=== PATIENT | female | born 1970 | race African-American/Black ===

== ENCOUNTER 2017-06-07 18:39 | Emergency (ER) | payer MEDICAID, MEDICARE, OTHER ==
[~2017-06-07 18:39] MED LIST: CARB200T4 PO; HYDR25CA94 PO; RISP2TAB35 PO; VENL100T PO
== END 2017-06-07 18:50 | disposition home or self-care (01) ==
LOC: ED 18:44
DX: Z02.9 Encounter for administrative examinations, unspecified (principal)

== ENCOUNTER 2017-06-07 18:52 | Emergency (ER) | payer MEDICAID, MEDICARE, OTHER ==
[~2017-06-07] VITALS: Ht 177.8 cm; Wt 81.5 kg
[2017-06-07 19:19] LABS: BASOPHILS # (AUTO) 0.03 x10^3/uL (0-0.1); BASOPHILS % (AUTO) 0 % (0-1); EOSINOPHILS # (AUTO) 0.05 x10^3/uL (0-0.4); EOSINOPHILS % (AUTO) 1 % (1-7); LYMPHOCYTES # (AUTO) 2.53 x10^3/uL (1-3.4); LYMPHOCYTES % (AUTO) 27 % (22-44); MD NO; MEAN CORPUSCULAR HEMOGLOBIN 32.2 pg (27.0-34.8); MEAN CORPUSCULAR HGB CONC 32.7 g/dL (32.4-35.8); MEAN CORPUSCULAR VOLUME 98.3 fL (80-100); MEAN PLATELET VOLUME 6.9 fL (7.4-10.4); MONOCYTES # (AUTO) 0.56 x10^3/uL (0.2-0.8); MONOCYTES % (AUTO) 6 % (2-9); NEUTROPHILS # (AUTO) 6.17 x10^3/uL (1.8-6.8); NEUTROPHILS % (AUTO) 66 % (42-75); PLATELET COUNT 313 x10^3/uL (130-400); RED BLOOD COUNT 3.38 x10^6/uL (3.82-5.3); RED CELL DISTRIBUTION WIDTH 14.4 % (9.6-15.2)
[2017-06-07 19:32] LABS: ALANINE AMINOTRANSFERASE 32 U/L (12-78); ALBUMIN 3.5 g/dL (3.4-5.0); ANION GAP 8 mmol/L (5-15); CHLORIDE 108 mmol/L (98-107); CREATININE 0.98 mg/dL (0.55-1.02)
[2017-06-07 19:37] LABS: ALKALINE PHOSPHATASE 87 U/L (45-117); BILIRUBIN,TOTAL 0.2 mg/dL (0.2-1.0); TOTAL PROTEIN 8.1 g/dL (6.4-8.2)
[2017-06-07 19:57] LABS: MICROSCOPIC AUTO
[2017-06-07 20:06] LABS: CULTURE INDICATED? YES
[2017-06-07 20:52] VITALS: BP 131/82
== END 2017-06-07 20:57 | disposition home or self-care (01) ==
LOC: ED 20:45
DX: R30.0 Dysuria (principal); R10.2 Pelvic and perineal pain
CPT/HCPCS: 36415; 80053; 81001; 84703; 85025; 87086; 99284

== ENCOUNTER 2018-04-19 16:10 | Emergency (ER) | payer MEDICAID, MEDICARE ==
[~2018-04-19] VITALS: Ht 177.8 cm; Wt 76.3 kg
[2018-04-19 16:14] VITALS: BP 128/72
--- NOTE | 2018-04-19 16:38 | NUR ---
CARLA GRAY. REPORT FROM THADDEUS GRAY. PT IN RADIOLOGY AT THIS TIME.
--- NOTE | 2018-04-19 17:00 | NUR ---
BEDSIDE REPORT AND CARE BACK TO PRIMARY ISAAC TRAVIS
--- NOTE | 2018-04-19 17:08 | NUR ---
IN ROOM WITH PA. AT PT REQUEST THIS RN WAS ASKED TO LEAVE TO SPEAK WITH PROVIDER IN PRIVATE.
--- NOTE | 2018-04-19 17:17 | NUR ---
REPORT RECEIVED FROM ISAAC TRAVIS.
== END 2018-04-19 17:40 | disposition home or self-care (01) ==
LOC: ED 17:05
DX: S53.402A Unspecified sprain of left elbow, initial encounter (principal); F31.9 Bipolar disorder, unspecified; Z88.8 Allergy status to other drugs, medicaments and biological substances; Y04.8XXA Assault by other bodily force, initial encounter; Y93.89 Activity, other specified; Y92.59 Other trade areas as the place of occurrence of the external cause; Y99.8 Other external cause status
CPT/HCPCS: 99283

== ENCOUNTER 2018-09-26 16:44 | Inpatient (IN) | payer MEDICARE, MEDICAID ==
[~2018-09-26] VITALS: Ht 175.3 cm; Wt 63.0 kg
[2018-09-27 07:40] VITALS: BP 128/81
== END 2018-09-27 15:49 | DRG 885 ==
LOC: ED 18:26 → EDIP 09-27 01:35 → 2N 09-27 02:15
PROVIDERS: ADMIT Internal Medicine; ATTEND Internal Medicine
DX: F31.9 Bipolar disorder, unspecified (principal); F91.3 Oppositional defiant disorder; F17.210 Nicotine dependence, cigarettes, uncomplicated; Z88.8 Allergy status to other drugs, medicaments and biological substances; Z78.1 Physical restraint status
CPT/HCPCS: 36415; 80053; 80307; 84443; 84703; 85025; 93005; 96372; 99285; G0378; J3486

== ENCOUNTER 2019-03-18 12:51 | Inpatient (IN) | payer MEDICARE, MEDICAID ==
[~2019-03-18] VITALS: Ht 177.8 cm; Wt 80.0 kg
--- NOTE | 2019-03-18 13:00 | NUR ---
PT RAMILA THOMAS FROM [facility]. PER EMS, PT CHECKED HERSELF INTO [facility] FOR DEPRESSION/SUICIDAL IDEATION. LEGAL HOLD FROM [facility] SENT WITH PT. PT ALSO C/O FEVER, CHILLS & HEADACHE X A COUPLE DAYS, SO WAS SENT FROM [facility] TO ED FOR MEDICAL CLEARANCE. PT REPORTS DYSURIA A COUPLE DAYS AGO, STATES, "MAYBE I HAVE A UTI, I JUST DON'T FEEL GOOD." PT DENIES ANY PLAN OF HURTING HERSELF, STATES SHE JUST FEELS HOPELESS, ESPECIALLY AFTER THE HOLIDAYS SINCE SHE HAS HAD 2 FAMILY MEMBERS AROUND [place] TIME. STATES SHE HAS NO FAMILY IN THE AREA AND NO SUPPORT. PER EMS & PT, PT MAY BE TRANSFERRED BACK TO [facility] IF MEDICALLY CLEARED IN ED. PT CHANGED INTO GOWN. BELONGINGS PLACED IN BAG. ERP WAS IN TO SEE PT IMMEDIATELY. POC RV'WD WITH PT. 15MIN SAFETY CHECKS IN PLACE. PT CALM, COOPERATIVE. WARM BLANKETS PROVIDED. Addendum: 03/18/19 at 1330 by TAVO PT REPORTS SHE HAS BEEN DRINKING & USING DRUGS MORE THAN USUAL "TO TRY TO NUMB THE PAIN". LAST DRINK A COUPLE DAYS AGO. PT ALSO REPORTS USING HEROIN & METH.
[2019-03-18 13:25] LABS: MEAN CORPUSCULAR HEMOGLOBIN 31.9 pg (27.0-34.8); MEAN CORPUSCULAR HGB CONC 32.3 g/dL (32.4-35.8); MEAN PLATELET VOLUME 6.4 fL (7.4-10.4); PLATELET COUNT 244 x10^3/uL (130-400); RED BLOOD COUNT 3.88 x10^6/uL (3.82-5.3); RED CELL DISTRIBUTION WIDTH 14.3 % (9.6-15.2)
[2019-03-18 13:29] LABS: MICROSCOPIC INDICATED
[2019-03-18 13:30] LABS: CULTURE INDICATED? YES
[2019-03-18] MEDS ORDERED: SODIUM CHLORIDE FLUSH 10ML SYR IVF ONE (13:30)
[2019-03-18] MEDS ORDERED: SODIUM CHLORIDE 0.9% 1,000ML IVBOLUS ONE (13:30)
[2019-03-18 13:36] LABS: ALBUMIN 2.8 g/dL (3.4-5.0); ANION GAP 7 mmol/L (5-15); CALCIUM 8.5 mg/dL (8.5-10.1); CHLORIDE 100 mmol/L (98-107); CREATININE 1.19 mg/dL (0.55-1.02)
[2019-03-18 13:37] LABS: SALICYLATE LEVEL < 1.7 mg/dL (2.8-20.0)
--- NOTE | 2019-03-18 13:40 | NUR ---
ERP WAS IN TO DISCUSS LAB RESULTS WITH PT.
[2019-03-18 13:41] LABS: METHADONE SCREEN, URINE Negative (Negative); OPIATE SCREEN, URINE Negative (Negative)
[2019-03-18 13:45] LABS: MD YES
[2019-03-18 13:47] LABS: <RBC MORPHOLOGY> NORMAL; BAND#(MANUAL) 0.85 x10^3/uL; BANDS%(MANUAL) 4 % (0-7); LYMPH#(MANUAL) 4.26 x10^3/uL (1-3.4); LYMPHS% (MANUAL) 20 % (22-44); MONOS#(MANUAL) 0.64 x10^3/uL (0.3-2.7); MONOS% (MANUAL) 3 % (2-9); SEG#(MANUAL) 15.55 x10^3/uL (1.8-6.8); SEGS% (MANUAL) 73 % (42-75)
[2019-03-18 13:48] LABS: <PLATELET ESTIMATE> ADEQUATE; <PLT MORPHOLOGY> NORMAL PLT MORPH
[2019-03-18 13:50] LABS: AMPHETAMINE SCREEN, URINE Positive (Negative); BARBITURATE SCREEN, URINE Negative (Negative); BENZODIAZEPINE SCREEN, URINE Positive (Negative); CANNABINOID SCREEN, URINE Negative (Negative); COCAINE SCREEN, URINE Negative (Negative)
--- NOTE | 2019-03-18 13:51 | NUR ---
IV STARTED, FLUID BOLUS INFUSING. RV'WD POC WITH PT. LAB AT BS FOR BLOOD CX.
[2019-03-18] MEDS ORDERED: KETOROLAC 30 MG/1 ML ONE (13:55)
[2019-03-18] MEDS ORDERED: SEROQUEL (13:59)
[2019-03-18] MEDS ORDERED: QUET400T4 PO (13:59)
[2019-03-18] MEDS ORDERED: DIAZ10TA PO (14:00)
[2019-03-18] MEDS ORDERED: TRAZ-175 PO (14:00)
[2019-03-18] MEDS ORDERED: CEFTRIAXONE PMX 1GM/50ML 50 ML IV ONE (14:00)
[2019-03-18] MEDS ORDERED: CEFTRIAXONE PMX 1GM/50ML 50 ML ONE (14:03)
[2019-03-18] MEDS ORDERED: POTASSIUM CHLORIDE 20 MEQ PACKET ONE (14:11)
[2019-03-18] MEDS ORDERED: MAALOX/HYOSCYAMINE/LIDOCAINE 45 ML BTL ONE (14:12)
--- NOTE | 2019-03-18 14:24 | NUR ---
ADMITTING MD AT .
[2019-03-18] MEDS ORDERED: ALUMINUM/MAG/SIMETHICONE 30 ML UDC PO PRN (14:30)
[2019-03-18] MEDS ORDERED: KETOROLAC 30 MG/1 ML IVPush ONE (14:30)
[2019-03-18] MEDS ORDERED: POTASSIUM CHLORIDE 20 MEQ PACKET PO ONE (14:30)
[2019-03-18] MEDS ORDERED: ALUMINUM/MAG/SIMETHICONE 30 ML UDC ONE (14:43)
[2019-03-18] MEDS: SODIUM CHLORIDE 0.9% 1,000 ML IV SCH ×2 (14:48→22:24)
[2019-03-18] MEDS ORDERED: ACETAMINOPHEN 325 MG TABLET ONE (14:54)
[2019-03-18] MEDS: ACETAMINOPHEN 325 MG TABLET PO PRN ×2 (14:58→20:33)
[2019-03-18] MEDS ORDERED: POTASSIUM CHLORIDE 20 MEQ TAB.ER.PRT PO ONE ×2 (15:00→22:30)
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
--- NOTE | 2019-03-18 15:51 | NUR ---
PT RESTING COMFORTABLY IN GURNEY, NO S/S OF DISTRESS, AWAKENS EASILY. REPORTED TO JAZMIN GRAY ON 3RD FLOOR.
[2019-03-18 19:20] VITALS: BP 104/68
[2019-03-18] MEDS: TRAZODONE 100MG TABLET PO SCH (22:23)
[2019-03-18] MEDS: QUETIAPINE 200 MG TABLET PO SCH (22:23)
[2019-03-18] MEDS: NICOTINE 14MG/24 HR PATCH.TD24 TD SCH (22:23)
[2019-03-18] MEDS: ENOXAPARIN 40 MG/0.4 ML SQ SCH (22:23)
[2019-03-19 00:25] VITALS: BP 106/69
[2019-03-19] MEDS: ACETAMINOPHEN 325 MG TABLET PO PRN ×2 (05:34→09:27)
[2019-03-19 05:48] LABS: CHLORIDE 108 mmol/L (98-107)
[2019-03-19 05:53] LABS: ANION GAP 5 mmol/L (5-15); CALCIUM 8.2 mg/dL (8.5-10.1); CREATININE 0.79 mg/dL (0.55-1.02)
[2019-03-19 06:17] LABS: MEAN CORPUSCULAR HGB CONC 31.5 g/dL (32.4-35.8); MEAN CORPUSCULAR VOLUME 101.7 fL (80-100); MEAN PLATELET VOLUME 6.9 fL (7.4-10.4); PLATELET COUNT 212 x10^3/uL (130-400); RED CELL DISTRIBUTION WIDTH 14.8 % (9.6-15.2)
[2019-03-19 07:42] LABS: BASOPHILS # (AUTO) 0.02 x10^3/uL (0-0.1); BASOPHILS % (AUTO) 0 % (0-1); EOSINOPHILS # (AUTO) 0.04 x10^3/uL (0-0.4); EOSINOPHILS % (AUTO) 0 % (1-7); LYMPHOCYTES # (AUTO) 1.93 x10^3/uL (1-3.4); LYMPHOCYTES % (AUTO) 14 % (22-44); MD SCAN; MONOCYTES # (AUTO) 1.15 x10^3/uL (0.2-0.8); MONOCYTES % (AUTO) 8 % (2-9); NEUTROPHILS # (AUTO) 11.07 x10^3/uL (1.8-6.8); NEUTROPHILS % (AUTO) 78 % (42-75)
[2019-03-19 09:08] VITALS: BP 112/75
[2019-03-19] MEDS: CEFTRIAXONE PMX 2GM/50ML 50 ML IV SCH (09:26)
[2019-03-19] MEDS: QUETIAPINE 200 MG TABLET PO SCH ×2 (09:27→22:21)
[2019-03-19] MEDS: SODIUM CHLORIDE 0.9% 1,000 ML IV SCH ×2 (09:27→17:13)
[2019-03-19] MEDS ORDERED: DIAZEPAM 5 MG TABLET ONE (09:35)
[2019-03-19] MEDS: DIAZEPAM 10 MG TABLET PO PRN (09:39)
[2019-03-19] MEDS ORDERED: ONDANSETRON 2MG/ML, 2ML IVPush PRN (10:30)
[2019-03-19] MEDS ORDERED: morphine SULFATE 10 MG/ML, 1ML IVPush PRN (10:30)
[2019-03-19 11:13] LABS: TROPONIN I < 0.015 ng/mL (0.000-0.045)
[2019-03-19] MEDS: MAALOX/HYOSCYAMINE/LIDOCAINE 45 ML BTL PO PRN ×2 (12:43→22:22)
[2019-03-19 12:56] VITALS: BP 115/80
[2019-03-19 16:13] LABS: TROPONIN I < 0.015 ng/mL (0.000-0.045)
[2019-03-19 19:39] VITALS: BP 124/82
[2019-03-19] MEDS: TRAZODONE 100MG TABLET PO SCH (22:21)
[2019-03-19] MEDS: NICOTINE 14MG/24 HR PATCH.TD24 TD SCH (22:22)
[2019-03-19] MEDS: ENOXAPARIN 40 MG/0.4 ML SQ SCH (22:22)
[2019-03-19 22:56] LABS: TROPONIN I < 0.015 ng/mL (0.000-0.045)
[2019-03-20 01:09] VITALS: BP 96/58
[2019-03-20] MEDS: SODIUM CHLORIDE 0.9% 1,000 ML IV SCH ×2 (02:01→08:53)
[2019-03-20 05:29] LABS: BASOPHILS # (AUTO) 0.05 x10^3/uL (0-0.1); BASOPHILS % (AUTO) 1 % (0-1); EOSINOPHILS # (AUTO) 0.08 x10^3/uL (0-0.4); EOSINOPHILS % (AUTO) 1 % (1-7); LYMPHOCYTES # (AUTO) 2.34 x10^3/uL (1-3.4); LYMPHOCYTES % (AUTO) 24 % (22-44); MD NO; MEAN CORPUSCULAR HEMOGLOBIN 32.9 pg (27.0-34.8); MEAN CORPUSCULAR HGB CONC 32.7 g/dL (32.4-35.8); MEAN CORPUSCULAR VOLUME 100.6 fL (80-100); MEAN PLATELET VOLUME 7.3 fL (7.4-10.4); MONOCYTES # (AUTO) 1.31 x10^3/uL (0.2-0.8); MONOCYTES % (AUTO) 14 % (2-9); NEUTROPHILS # (AUTO) 5.84 x10^3/uL (1.8-6.8); NEUTROPHILS % (AUTO) 61 % (42-75); PLATELET COUNT 212 x10^3/uL (130-400); RED BLOOD COUNT 2.86 x10^6/uL (3.82-5.3); RED CELL DISTRIBUTION WIDTH 14.7 % (9.6-15.2)
[2019-03-20 05:32] LABS: CALCIUM 8.1 mg/dL (8.5-10.1); CHLORIDE 106 mmol/L (98-107)
[2019-03-20 05:38] LABS: ALANINE AMINOTRANSFERASE 11 U/L (12-78); ALKALINE PHOSPHATASE 81 U/L (45-117); ANION GAP 4 mmol/L (5-15); BILIRUBIN,TOTAL 0.7 mg/dL (0.2-1.0); CREATININE 0.83 mg/dL (0.55-1.02); TOTAL PROTEIN 5.9 g/dL (6.4-8.2)
[2019-03-20 08:19] VITALS: BP 119/73
[2019-03-20] MEDS: CEFTRIAXONE PMX 2GM/50ML 50 ML IV SCH (08:53)
[2019-03-20] MEDS: QUETIAPINE 200 MG TABLET PO SCH ×2 (08:53→20:57)
[2019-03-20 12:26] VITALS: BP 131/87
[2019-03-20 20:04] VITALS: BP 115/76
[2019-03-20] MEDS: CEFDINIR 300 MG CAPSULE PO SCH (20:57)
[2019-03-20] MEDS: NICOTINE 14MG/24 HR PATCH.TD24 TD SCH (20:57)
[2019-03-20] MEDS: ENOXAPARIN 40 MG/0.4 ML SQ SCH (20:57)
[2019-03-20] MEDS: MAALOX/HYOSCYAMINE/LIDOCAINE 45 ML BTL PO PRN (20:57)
[2019-03-20] MEDS: TRAZODONE 100MG TABLET PO SCH (20:57)
[2019-03-21 00:33] VITALS: BP 103/69
[2019-03-21 06:53] LABS: BASOPHILS # (AUTO) 0.03 x10^3/uL (0-0.1); BASOPHILS % (AUTO) 1 % (0-1); EOSINOPHILS # (AUTO) 0.07 x10^3/uL (0-0.4); EOSINOPHILS % (AUTO) 1 % (1-7); LYMPHOCYTES # (AUTO) 1.79 x10^3/uL (1-3.4); LYMPHOCYTES % (AUTO) 27 % (22-44); MD NO; MEAN CORPUSCULAR HEMOGLOBIN 32.3 pg (27.0-34.8); MEAN CORPUSCULAR HGB CONC 32.5 g/dL (32.4-35.8); MEAN CORPUSCULAR VOLUME 99.7 fL (80-100); MEAN PLATELET VOLUME 6.8 fL (7.4-10.4); MONOCYTES # (AUTO) 1.17 x10^3/uL (0.2-0.8); MONOCYTES % (AUTO) 17 % (2-9); NEUTROPHILS # (AUTO) 3.67 x10^3/uL (1.8-6.8); NEUTROPHILS % (AUTO) 55 % (42-75); PLATELET COUNT 261 x10^3/uL (130-400); RED BLOOD COUNT 2.98 x10^6/uL (3.82-5.3); RED CELL DISTRIBUTION WIDTH 14.7 % (9.6-15.2)
[2019-03-21 06:58] LABS: CHLORIDE 101 mmol/L (98-107)
[2019-03-21 07:09] VITALS: BP 102/65
[2019-03-21 07:27] LABS: ALANINE AMINOTRANSFERASE 17 U/L (12-78); ALBUMIN 2.2 g/dL (3.4-5.0); ALKALINE PHOSPHATASE 82 U/L (45-117); ANION GAP 5 mmol/L (5-15); BILIRUBIN,TOTAL 0.5 mg/dL (0.2-1.0); CREATININE 0.89 mg/dL (0.55-1.02); TOTAL PROTEIN 6.7 g/dL (6.4-8.2)
[2019-03-21] MEDS: CEFDINIR 300 MG CAPSULE PO SCH ×2 (09:06→21:21)
[2019-03-21] MEDS: QUETIAPINE 200 MG TABLET PO SCH ×2 (09:07→21:21)
[2019-03-21 12:40] VITALS: BP 95/52
[2019-03-21] MEDS: ACETAMINOPHEN 325 MG TABLET PO PRN (15:11)
[2019-03-21 18:35] VITALS: BP 106/68
[2019-03-21] MEDS: TRAZODONE 100MG TABLET PO SCH (21:21)
[2019-03-21] MEDS: NICOTINE 14MG/24 HR PATCH.TD24 TD SCH (21:21)
[2019-03-21] MEDS: ENOXAPARIN 40 MG/0.4 ML SQ SCH (21:22)
[2019-03-22] VITALS: BP 103/60
[2019-03-22] MEDS: DIAZEPAM 10 MG TABLET PO PRN (05:59)
[2019-03-22 07:55] VITALS: BP 110/69
[2019-03-22] MEDS: MAALOX/HYOSCYAMINE/LIDOCAINE 45 ML BTL PO PRN (09:12)
[2019-03-22] MEDS: QUETIAPINE 200 MG TABLET PO SCH (09:13)
[2019-03-22] MEDS: CEFDINIR 300 MG CAPSULE PO SCH (09:13)
[2019-03-22] MEDS ORDERED: CEFD300C37 PO (12:11)
[2019-03-22] MEDS ORDERED: NAPR220C62 PO (12:11)
[2019-03-22] MEDS ORDERED: ACET325T26 PO (12:11)
[2019-03-22 13:17] VITALS: BP 102/64
[2019-03-22] MEDS ORDERED: SERT100T PO (17:26)
[2019-03-28] MEDS ORDERED: QUET200T PO (16:26)
[2019-03-28] MEDS ORDERED: TRAZ-175 PO (16:26)
[2019-03-28] MEDS ORDERED: SERT50TA28 PO (16:26)
== END 2019-03-22 15:17 | DRG 871 ==
LOC: ED 14:36 → EDIP 15:16 → 3N 16:05 → 3E 03-22 11:38 → 3N 03-22 11:38
PROVIDERS: ADMIT Internal Medicine Infectious Disease; ATTEND Internal Medicine
DX: A41.9 Sepsis, unspecified organism (principal); N17.0 Acute kidney failure with tubular necrosis; N10 Acute pyelonephritis; E87.1 Hypo-osmolality and hyponatremia; F31.30 Bipolar disorder, current episode depressed, mild or moderate severity, unspecified; R45.851 Suicidal ideations; I10 Essential (primary) hypertension; E87.6 Hypokalemia; F15.10 Other stimulant abuse, uncomplicated; G89.29 Other chronic pain; B96.20 Unspecified Escherichia coli [E. coli] as the cause of diseases classified elsewhere; M79.602 Pain in left arm; Z72.89 Other problems related to lifestyle; Z71.6 Tobacco abuse counseling; Z71.51 Drug abuse counseling and surveillance of drug abuser; Z72.0 Tobacco use; Z88.8 Allergy status to other drugs, medicaments and biological substances; Z79.899 Other long term (current) drug therapy
CPT/HCPCS: 36415; 71045; 80048; 80053; 80307; 81001; 82040; 83605; 84145; 84484; 84703; 85025; 87040; 87077; 87086; 87186; 93005; 96361; 96365; G0378; J0696; J1650; J1885; J7030

== ENCOUNTER 2019-04-23 06:32 | Emergency (ER) | payer MEDICARE, MEDICAID ==
[~2019-04-23] VITALS: Ht 177.8 cm; Wt 75.9 kg
[~2019-04-23 06:32] MED LIST changes: +ACET325T26 PO; +CEFD300C37 PO; +DIAZ10TA PO; +NAPR220C62 PO; +QUET200T PO; +QUET400T4 PO; +SEROQUEL; +SERT100T PO; +SERT50TA28 PO; +TRAZ-175 PO
--- NOTE | 2019-04-23 07:17 | NUR ---
PT BACK TO ROOM FROM XRAY.
[2019-04-23 07:20] VITALS: BP 126/73
--- NOTE | 2019-04-23 07:27 | NUR ---
pt states"i can't pee. i need to stay here." edmd notified. edmd states"we don't need to wait for ua. just dc."
--- NOTE | 2019-04-23 07:54 | NUR ---
Patient given discharge instructions and they have confirmed that they understand the instructions.
== END 2019-04-23 07:55 | disposition home or self-care (01) ==
LOC: ED 07:20
DX: J20.9 Acute bronchitis, unspecified (principal); N39.0 Urinary tract infection, site not specified; I10 Essential (primary) hypertension; F17.200 Nicotine dependence, unspecified, uncomplicated
CPT/HCPCS: 71046; 99283

== ENCOUNTER 2019-04-23 20:41 | Emergency (ER) | payer MEDICARE, MEDICAID ==
[~2019-04-23] VITALS: Ht 177.8 cm; Wt 75.0 kg
[2019-04-23] MEDS ORDERED: LORazepam 1MG TABLET PO ONE (21:30)
[2019-04-23] MEDS ORDERED: LORazepam 1MG TABLET ONE (21:32)
[2019-04-23 21:36] LABS: BASOPHILS # (AUTO) 0.04 x10^3/uL (0-0.1); BASOPHILS % (AUTO) 0 % (0-1); EOSINOPHILS # (AUTO) 0.13 x10^3/uL (0-0.4); EOSINOPHILS % (AUTO) 2 % (1-7); LYMPHOCYTES # (AUTO) 2.11 x10^3/uL (1-3.4); LYMPHOCYTES % (AUTO) 25 % (22-44); MD NO; MEAN CORPUSCULAR HEMOGLOBIN 32.3 pg (27.0-34.8); MEAN CORPUSCULAR HGB CONC 32.6 g/dL (32.4-35.8); MEAN CORPUSCULAR VOLUME 99.1 fL (80-100); MEAN PLATELET VOLUME 6.5 fL (7.4-10.4); MONOCYTES # (AUTO) 0.81 x10^3/uL (0.2-0.8); MONOCYTES % (AUTO) 10 % (2-9); NEUTROPHILS % (AUTO) 63 % (42-75); PLATELET COUNT 351 x10^3/uL (130-400); RED BLOOD COUNT 3.47 x10^6/uL (3.82-5.3); RED CELL DISTRIBUTION WIDTH 14.1 % (9.6-15.2)
[2019-04-23 21:48] LABS: ALBUMIN 3.4 g/dL (3.4-5.0); ANION GAP 5 mmol/L (5-15); CALCIUM 8.9 mg/dL (8.5-10.1); CHLORIDE 107 mmol/L (98-107)
[2019-04-23 21:49] LABS: SALICYLATE LEVEL < 1.7 mg/dL (2.8-20.0)
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
--- NOTE | 2019-04-23 23:08 | NUR ---
Attempted to obtain urine; patient states she is unable. Provided drinks.
--- NOTE | 2019-04-24 00:14 | NUR ---
Spoke with [facility]; cannot accept patient due to insurance. Patient is out of psych days.
--- NOTE | 2019-04-24 00:14 | NUR ---
Patient sleeping in [place]. Respirations even and unlabored. Sitter outside room.
--- NOTE | 2019-04-24 01:58 | NUR ---
Patient sleeping in [place]. Respirations even and unlabored. Sitter outside room.
--- NOTE | 2019-04-24 03:12 | NUR ---
Patient sleeping in [place]. Respirations even and unlabored. Sitter outside room.
--- NOTE | 2019-04-24 03:53 | NUR ---
Urine collected from patient.
[2019-04-24 04:04] LABS: AMPHETAMINE SCREEN, URINE Positive (Negative); BARBITURATE SCREEN, URINE Negative (Negative); BENZODIAZEPINE SCREEN, URINE Positive (Negative); CANNABINOID SCREEN, URINE Negative (Negative); COCAINE SCREEN, URINE Negative (Negative); METHADONE SCREEN, URINE Negative (Negative); OPIATE SCREEN, URINE Negative (Negative)
--- NOTE | 2019-04-24 04:59 | NUR ---
Patient sleeping in [place]. Respirations even and unlabored. Sitter outside room.
--- NOTE | 2019-04-24 05:46 | NUR ---
Patient sleeping in [place]. Respirations even and unlabored. Sitter outside room.
--- NOTE | 2019-04-24 06:34 | NUR ---
Patient sleeping in [place]. Respirations even and unlabored. Sitter outside room.
--- NOTE | 2019-04-24 07:00 | NUR ---
SBAR RPT REC'D AND PT CARE ASSUMED. PT RESTING ON GURNEY WITH EYES CLOSED, RESP EVEN NON-LABORED. SITTER AT DOORWAY WITH PT IN DIRECT LINE OF SIGHT. GARAGE DOORS DOWN.
--- NOTE | 2019-04-24 08:30 | NUR ---
PT OOB AND AMBULATED TO BATHROOM, UPRIGHT STEADY GAIT. HOSPITAL BED PLACED IN ROOM. PT RTD TO ROOM W/O INCIDENT. PT REQUESTS TV REMOTE AND BREAKFAST. REMOTE/CALL LIGHT GIVEN, AND ED SI MEAL TRAY PROVIDED. PT ATE 100% OF MEAL.
--- NOTE | 2019-04-24 10:58 | NUR ---
PT REPORT FROM ISAAC ROMANO. PT CARE TO BE ASSUMED. PT ASLEEP ON BED. SITTER OUTSIDE ROOM.
--- NOTE | 2019-04-24 12:02 | NUR ---
LUNCH TRAY DELIVERED. PT REPORTS NOT BEING HUNGRY CURRENTLY.
--- NOTE | 2019-04-24 12:20 | NUR ---
PT DENIES SI, HI. STATES "I NEVER HAD THOSE IDEAS". PT REFUSING TO ANSWER ADDITIONAL QUESTIONS.
[2019-04-24 12:25] VITALS: BP 113/73
--- NOTE | 2019-04-24 14:44 | NUR ---
PT NOTIFIED OF PENDING TRANSFER VIA TAXI TO [facility], RECORD ST. PT'S BAG OF BELONGINGS RETURNED TO PT. PT WAS AMBULATORY TO [facility] W/OUT INCIDENT; GAIT STEADY.
--- NOTE | 2019-04-24 14:55 | NUR ---
PT REFUSING TO LEAVE. SECURITY CALLED.
--- NOTE | 2019-04-24 15:01 | NUR ---
PT ESCORTED TO EXIT PER SECURITY. Addendum: 04/24/19 at 1503 by EMILY DYLON INSTRUCTIONS, [facility] & [facility] PRESCRIPTIONS W/ PT.
== END 2019-04-24 15:06 | disposition home or self-care (01) ==
LOC: ED 23:25
DX: F31.2 Bipolar disorder, current episode manic severe with psychotic features (principal); F06.2 Psychotic disorder with delusions due to known physiological condition
CPT/HCPCS: 36415; 80048; 80307; 82040; 84703; 85025; 99284

== ENCOUNTER 2019-06-23 17:05 | Emergency (ER) | payer MEDICARE, MEDICAID ==
[~2019-06-23] VITALS: Ht 177.8 cm; Wt 75.2 kg
--- NOTE | 2019-06-23 17:45 | NUR ---
PT NAKED, COMPLIANT WHEN TOLD TO DRESS IN GOWN, CONSOLIDATING BELONGINGS THAT ARE SCATTERED ACROSS THE FLOOR. PT WITH TANGENTIAL SPEECH ABOUT GAMBLING.
--- NOTE | 2019-06-23 18:20 | NUR ---
PT LAYING IN BED, RESPIRATIONS EVEN AND UNLABORED, NO SIGNS OF DISTRESS, WILL CONTINUE TO MONITOR.
--- NOTE | 2019-06-23 19:06 | NUR ---
REPORT GIVEN TO ISAAC BIGGS. PT LAYING IN BED, RESPIRATIONS EVEN AND UNLABORED, EYES CLOSED, LIGHTS OFF TO PROMOTE REST.
--- NOTE | 2019-06-23 19:07 | NUR ---
PT RESTING ON GURNEY, MONITORS IN PLACE, NAD, CALL LIGHT WITHIN REACH. AWAITING ORDERS
--- NOTE | 2019-06-23 19:17 | NUR ---
URINE SAMPLE SENT
[2019-06-23 19:41] LABS: BASOPHILS # (AUTO) 0.02 x10^3/uL (0-0.1); BASOPHILS % (AUTO) 0 % (0-1); EOSINOPHILS # (AUTO) 0.11 x10^3/uL (0-0.4); EOSINOPHILS % (AUTO) 2 % (1-7); LYMPHOCYTES # (AUTO) 2.16 x10^3/uL (1-3.4); LYMPHOCYTES % (AUTO) 31 % (22-44); MD NO; MEAN CORPUSCULAR HGB CONC 32.5 g/dL (32.4-35.8); MEAN CORPUSCULAR VOLUME 98.2 fL (80-100); MEAN PLATELET VOLUME 6.5 fL (7.4-10.4); MONOCYTES % (AUTO) 14 % (2-9); NEUTROPHILS % (AUTO) 53 % (42-75); PLATELET COUNT 301 x10^3/uL (130-400); RED BLOOD COUNT 3.31 x10^6/uL (3.82-5.3); RED CELL DISTRIBUTION WIDTH 13.2 % (9.6-15.2)
[2019-06-23 19:45] LABS: ALANINE AMINOTRANSFERASE 32 U/L (12-78); ALBUMIN 2.9 g/dL (3.4-5.0); ANION GAP 6 mmol/L (5-15); CALCIUM 8.3 mg/dL (8.5-10.1); CHLORIDE 105 mmol/L (98-107); CREATININE 0.85 mg/dL (0.55-1.02)
[2019-06-23 19:47] LABS: ALKALINE PHOSPHATASE 102 U/L (45-117); BILIRUBIN,TOTAL 0.3 mg/dL (0.2-1.0); TOTAL PROTEIN 6.6 g/dL (6.4-8.2)
[2019-06-23 19:57] LABS: CULTURE INDICATED? YES; MICROSCOPIC INDICATED
--- NOTE | 2019-06-23 19:58 | NUR ---
PT RESTING CALMLY, MONITORS IN PLACE, CALL LIGHT WITHIN REACH, DENIES NEEDS. AWAITING URINE RESULT
[2019-06-23] MEDS ORDERED: CEFDINIR 300 MG CAPSULE PO ONE (20:30)
[2019-06-23] MEDS ORDERED: CEFDINIR 300 MG CAPSULE ONE (20:31)
--- NOTE | 2019-06-23 20:34 | NUR ---
PT MEDICATED PER MAR
[2019-06-23 20:40] VITALS: BP 117/60
--- NOTE | 2019-06-23 21:05 | NUR ---
D/C INSTRUCTIONS PROVIDED TO PT, PT REFUSING TO LOOK AT OR TALK TO THIS RN REGARDING D/C, PT FREQUENTLY GOING INTO RR. SECURITY CALLED FOR ASSISTANCE WITH PT'S D/C
== END 2019-06-23 21:08 | disposition home or self-care (01) ==
LOC: ED 18:30
DX: N30.00 Acute cystitis without hematuria (principal); F32.9 Major depressive disorder, single episode, unspecified; E86.0 Dehydration; I10 Essential (primary) hypertension
CPT/HCPCS: 36415; 80053; 81001; 83605; 85025; 87040; 87077; 87086; 87186; 99285

== ENCOUNTER 2019-06-25 07:45 | Emergency (ER) | payer MEDICARE, MEDICAID ==
[~2019-06-25] VITALS: Ht 177.8 cm; Wt 79.5 kg
[2019-06-25 07:50] VITALS: BP 130/84
[2019-06-25 08:27] LABS: ALBUMIN 2.8 g/dL (3.4-5.0); ANION GAP 6 mmol/L (5-15); CALCIUM 8.1 mg/dL (8.5-10.1); CHLORIDE 104 mmol/L (98-107)
--- NOTE | 2019-06-25 08:30 | NUR ---
PT STATES SHE CANNOT GET UP TO PROVIDE URINE SAMPLE BECAUSE SHE IS COLD AND THAT THE RN SHOULD DO A CATHETER. MD NOTIFIED. NO NEED FOR CATHETER AT THIS TIME.
[2019-06-25 08:31] LABS: MEAN CORPUSCULAR HEMOGLOBIN 31.6 pg (27.0-34.8); MEAN CORPUSCULAR HGB CONC 32.7 g/dL (32.4-35.8); MEAN CORPUSCULAR VOLUME 96.6 fL (80-100); MEAN PLATELET VOLUME 6.1 fL (7.4-10.4); PLATELET COUNT 282 x10^3/uL (130-400); RED CELL DISTRIBUTION WIDTH 13.6 % (9.6-15.2)
[2019-06-25 08:47] LABS: BASOPHILS # (AUTO) 0.01 x10^3/uL (0-0.1); BASOPHILS % (AUTO) 0 % (0-1); EOSINOPHILS # (AUTO) 0.01 x10^3/uL (0-0.4); EOSINOPHILS % (AUTO) 0 % (1-7); LYMPHOCYTES # (AUTO) 0.64 x10^3/uL (1-3.4); LYMPHOCYTES % (AUTO) 13 % (22-44); MD SCAN; MONOCYTES # (AUTO) 0.28 x10^3/uL (0.2-0.8); MONOCYTES % (AUTO) 6 % (2-9); NEUTROPHILS # (AUTO) 4.15 x10^3/uL (1.8-6.8); NEUTROPHILS % (AUTO) 82 % (42-75)
--- NOTE | 2019-06-25 08:49 | NUR ---
MD DISCUSSED UTI AND NEED FOR PT TO FILL RX TO TREAT. PT GIVEN RX AND DISCHARGE SUMMARY, PT REFUSING TO LEAVE STATING "YOU DIDN'T EVEN GIVE ME FOOD, I'M SICK AND DEHYRDRATED AND I HAVE A FEVER AND YOU WONT EVEN HELP", PT EDUCATED THAT LABS ARE WDL AND PT DOES NOT HAVE FEVER. SECURITY CALLED
--- NOTE | 2019-06-25 08:50 | NUR ---
SECURITY AT BEDSIDE, PT REFUSING TO LEAVE.
== END 2019-06-25 08:58 | disposition home or self-care (01) ==
LOC: ED 07:57
DX: N30.00 Acute cystitis without hematuria (principal); R19.7 Diarrhea, unspecified; I10 Essential (primary) hypertension; R00.0 Tachycardia, unspecified
CPT/HCPCS: 36415; 80048; 82040; 85025; 99283

== ENCOUNTER 2019-07-05 12:34 | Inpatient (IN) | payer MEDICARE, MEDICAID ==
[~2019-07-05] VITALS: Ht 177.8 cm; Wt 76.1 kg
[2019-07-05] MEDS ORDERED: ACETAMINOPHEN 325 MG TABLET PO PRN ×2 (17:30→18:00)
[2019-07-05] MEDS ORDERED: DOCUSATE 100 MG CAPSULE PO PRN (18:00)
[2019-07-05] MEDS ORDERED: PLEASE ENTER HEIGHT AND WEIGHT MC SCH (18:00)
[2019-07-05] MEDS ORDERED: POLYETHYLENE GLYCOL 17 GM PACKET PO PRN (18:00)
[2019-07-05 19:15] VITALS: BP 127/77
[2019-07-05] MEDS: TRAZODONE 100MG TABLET PO PRN (20:58)
[2019-07-06 01:19] VITALS: BP 134/85
[2019-07-06] MEDS ORDERED: OMEP20CA20 PO (01:59)
[2019-07-06] MEDS ORDERED: BACL5TAB PO (02:00)
[2019-07-06] MEDS ORDERED: ARIP10TA33 PO (02:01)
[2019-07-06 07:25] VITALS: BP 117/71
[2019-07-06 08:16] LABS: BASOPHILS # (AUTO) 0.01 x10^3/uL (0-0.1); BASOPHILS % (AUTO) 0 % (0-1); EOSINOPHILS # (AUTO) 0.03 x10^3/uL (0-0.4); EOSINOPHILS % (AUTO) 1 % (1-7); LYMPHOCYTES # (AUTO) 1.63 x10^3/uL (1-3.4); LYMPHOCYTES % (AUTO) 34 % (22-44); MD NO; MEAN CORPUSCULAR HEMOGLOBIN 31.7 pg (27.0-34.8); MEAN CORPUSCULAR HGB CONC 32.2 g/dL (32.4-35.8); MEAN CORPUSCULAR VOLUME 98.5 fL (80-100); MEAN PLATELET VOLUME 6.1 fL (7.4-10.4); MONOCYTES # (AUTO) 0.54 x10^3/uL (0.2-0.8); MONOCYTES % (AUTO) 11 % (2-9); NEUTROPHILS # (AUTO) 2.65 x10^3/uL (1.8-6.8); NEUTROPHILS % (AUTO) 55 % (42-75); PLATELET COUNT 482 x10^3/uL (130-400); RED BLOOD COUNT 3.66 x10^6/uL (3.82-5.3); RED CELL DISTRIBUTION WIDTH 14.7 % (9.6-15.2)
[2019-07-06 08:23] LABS: ALANINE AMINOTRANSFERASE 28 U/L (12-78); ALBUMIN 3.1 g/dL (3.4-5.0); ANION GAP 4 mmol/L (5-15); CALCIUM 8.9 mg/dL (8.5-10.1); CHLORIDE 107 mmol/L (98-107); CREATININE 0.93 mg/dL (0.55-1.02)
[2019-07-06 08:32] LABS: ALKALINE PHOSPHATASE 93 U/L (45-117); BILIRUBIN,TOTAL 0.4 mg/dL (0.2-1.0); CHOLESTEROL, TOTAL 157 mg/dL (140-239); FREE T4 (FREE THYROXINE) 1.13 ng/dL (0.76-1.46); HDL CHOL % 34 % (28-40); HDL CHOLESTEROL (DIRECT) 53 mg/dL (40-60); LDL CHOLESTEROL,CALCULATED 81 mg/dL (54-169); LDL/HDL RATIO 1.5 (0.5-3.0); TOTAL PROTEIN 7.6 g/dL (6.4-8.2); TRIGLYCERIDES 114 mg/dL (50-200); VLDL CHOLESTEROL 23 mg/dL (0-25)
[2019-07-06] MEDS: QUETIAPINE 100MG TABLET PO SCH ×2 (10:00→20:07)
[2019-07-06] MEDS ORDERED: QUETIAPINE 200 MG TABLET ONE (10:04)
[2019-07-06] MEDS: SERTRALINE 50MG TABLET PO SCH (10:07)
[2019-07-06 19:51] VITALS: BP 127/80
[2019-07-06] MEDS: TRAZODONE 100MG TABLET PO PRN (20:07)
[2019-07-07 07:00] VITALS: BP 120/79
[2019-07-07] MEDS: QUETIAPINE 100MG TABLET PO SCH ×2 (08:36→20:51)
[2019-07-07] MEDS: SERTRALINE 50MG TABLET PO SCH (08:36)
[2019-07-07 17:58] VITALS: BP 134/90
[2019-07-07 19:53] VITALS: BP 132/85
[2019-07-07] MEDS: TRAZODONE 100MG TABLET PO PRN (20:50)
[2019-07-07 22:54] LABS: MICROSCOPIC AUTO
[2019-07-08 07:30] VITALS: BP 108/68
[2019-07-08] MEDS: SERTRALINE 50MG TABLET PO SCH (10:00)
[2019-07-08] MEDS: QUETIAPINE 100MG TABLET PO SCH ×2 (10:01→20:40)
[2019-07-08 19:17] VITALS: BP 118/78
[2019-07-08] MEDS: TRAZODONE 100MG TABLET PO PRN (20:39)
[2019-07-09 07:27] VITALS: BP 109/70
[2019-07-09] MEDS: SERTRALINE 50MG TABLET PO SCH (08:41)
[2019-07-09] MEDS: QUETIAPINE 100MG TABLET PO SCH ×2 (08:41→20:17)
[2019-07-09] MEDS ORDERED: DICYCLOMINE 20 MG TABLET PO PRN (11:00)
[2019-07-09] MEDS: LURASIDONE 20 MG TABLET PO SCH (11:41)
[2019-07-09 19:58] VITALS: BP 114/68
[2019-07-09] MEDS: TRAZODONE 100MG TABLET PO PRN (20:19)
[2019-07-10 07:50] VITALS: BP 116/72
[2019-07-10] MEDS: LURASIDONE 20 MG TABLET PO SCH (09:21)
[2019-07-10] MEDS: QUETIAPINE 100MG TABLET PO SCH ×2 (09:21→20:08)
[2019-07-10] MEDS: SERTRALINE 50MG TABLET PO SCH (09:33)
[2019-07-10 19:54] VITALS: BP 113/73
[2019-07-10] MEDS: TRAZODONE 100MG TABLET PO PRN (20:08)
[2019-07-11 07:40] VITALS: BP 99/61
[2019-07-11] MEDS: QUETIAPINE 100MG TABLET PO SCH ×2 (08:50→21:15)
[2019-07-11] MEDS: LURASIDONE 20 MG TABLET PO SCH (08:50)
[2019-07-11] MEDS: SERTRALINE 50MG TABLET PO SCH (08:51)
[2019-07-11] MEDS: DIAZEPAM 5 MG TABLET PO PRN ×2 (17:18→21:15)
[2019-07-11 19:48] VITALS: BP 119/73
[2019-07-11] MEDS: TRAZODONE 100MG TABLET PO PRN (21:15)
[2019-07-12 07:58] VITALS: BP 109/75
[2019-07-12] MEDS: SERTRALINE 50MG TABLET PO SCH (08:38)
[2019-07-12] MEDS: LURASIDONE 20 MG TABLET PO SCH (08:39)
[2019-07-12] MEDS: QUETIAPINE 100MG TABLET PO SCH ×2 (08:39→20:19)
[2019-07-12] MEDS ORDERED: IBUPROFEN 200 MG TABLET ONE (16:17)
[2019-07-12] MEDS: DIAZEPAM 5 MG TABLET PO PRN (16:19)
[2019-07-12] MEDS: IBUPROFEN 200 MG TABLET PO PRN (16:19)
[2019-07-12 19:15] VITALS: BP 101/64
[2019-07-12] MEDS: TRAZODONE 100MG TABLET PO PRN (20:19)
[2019-07-13 07:00] VITALS: BP 108/70
[2019-07-13] MEDS: SERTRALINE 50MG TABLET PO SCH (08:41)
[2019-07-13] MEDS: LURASIDONE 20 MG TABLET PO SCH (08:42)
[2019-07-13] MEDS: IBUPROFEN 200 MG TABLET PO PRN (08:42)
[2019-07-13] MEDS: QUETIAPINE 100MG TABLET PO SCH ×2 (08:42→21:35)
[2019-07-13] MEDS ORDERED: NICOTINE GUM 2 MG BC PRN (18:00)
[2019-07-13 19:42] VITALS: BP 116/76
[2019-07-13] MEDS: TRAZODONE 100MG TABLET PO PRN (21:34)
[2019-07-13] MEDS: DIAZEPAM 5 MG TABLET PO PRN (21:37)
[2019-07-14 07:00] VITALS: BP 99/64
[2019-07-14] MEDS: QUETIAPINE 100MG TABLET PO SCH ×2 (09:12→21:56)
[2019-07-14] MEDS: SERTRALINE 50MG TABLET PO SCH (09:13)
[2019-07-14] MEDS: LURASIDONE 20 MG TABLET PO SCH (09:13)
[2019-07-14 19:46] VITALS: BP 110/70
[2019-07-14] MEDS: TRAZODONE 100MG TABLET PO PRN (21:55)
[2019-07-15 07:00] VITALS: BP 97/61
[2019-07-15] MEDS: QUETIAPINE 100MG TABLET PO SCH ×2 (08:37→20:19)
[2019-07-15] MEDS: SERTRALINE 50MG TABLET PO SCH (08:37)
[2019-07-15] MEDS: LURASIDONE 20 MG TABLET PO SCH (08:38)
[2019-07-15] MEDS: DIAZEPAM 5 MG TABLET PO PRN ×2 (08:40→20:18)
[2019-07-15 19:46] VITALS: BP 128/88
[2019-07-15] MEDS: TRAZODONE 100MG TABLET PO PRN ×2 (20:17→20:18)
[2019-07-15] MEDS: IBUPROFEN 200 MG TABLET PO PRN ×2 (20:17→20:18)
[2019-07-16 00:40] VITALS: BP 110/68
[2019-07-16 07:15] VITALS: BP 96/59
[2019-07-16] MEDS: LURASIDONE 20 MG TABLET PO SCH (08:29)
[2019-07-16] MEDS: SERTRALINE 50MG TABLET PO SCH (08:29)
[2019-07-16] MEDS: QUETIAPINE 100MG TABLET PO SCH ×2 (08:31→20:26)
[2019-07-16] MEDS: DIAZEPAM 5 MG TABLET PO PRN (14:44)
[2019-07-16] MEDS ORDERED: LORazepam 1MG TABLET PO ONE (18:30)
[2019-07-16 19:15] VITALS: BP 104/68
[2019-07-16] MEDS: TRAZODONE 100MG TABLET PO PRN (20:26)
[2019-07-17 07:29] VITALS: BP 116/70
[2019-07-17] MEDS: SERTRALINE 50MG TABLET PO SCH (09:29)
[2019-07-17] MEDS: QUETIAPINE 100MG TABLET PO SCH ×2 (09:29→20:48)
[2019-07-17] MEDS: LURASIDONE 20 MG TABLET PO SCH (09:29)
[2019-07-17 19:15] VITALS: BP 116/70
[2019-07-17] MEDS: DIAZEPAM 5 MG TABLET PO PRN (20:48)
[2019-07-17] MEDS: TRAZODONE 100MG TABLET PO PRN (20:48)
[2019-07-18 07:29] VITALS: BP 108/71
[2019-07-18] MEDS: LURASIDONE 20 MG TABLET PO SCH (08:25)
[2019-07-18] MEDS: SERTRALINE 50MG TABLET PO SCH (08:25)
[2019-07-18] MEDS: QUETIAPINE 100MG TABLET PO SCH ×2 (08:25→20:27)
[2019-07-18 19:48] VITALS: BP 115/77
[2019-07-18] MEDS: TRAZODONE 100MG TABLET PO PRN (20:27)
[2019-07-18] MEDS: DIAZEPAM 5 MG TABLET PO PRN (20:27)
[2019-07-19 07:24] VITALS: BP 112/69
[2019-07-19] MEDS: LURASIDONE 20 MG TABLET PO SCH (08:53)
[2019-07-19] MEDS: SERTRALINE 50MG TABLET PO SCH (08:53)
[2019-07-19] MEDS: QUETIAPINE 100MG TABLET PO SCH ×2 (08:53→20:51)
[2019-07-19] MEDS: IBUPROFEN 200 MG TABLET PO PRN (14:50)
[2019-07-19] MEDS: DIAZEPAM 5 MG TABLET PO PRN (14:50)
[2019-07-19] MEDS ORDERED: LURA20TA PO (15:42)
[2019-07-19] MEDS ORDERED: SERT50TA28 PO (15:42)
[2019-07-19] MEDS ORDERED: QUET100T PO (15:42)
[2019-07-19] MEDS ORDERED: TRAZ-175 PO (15:42)
[2019-07-19 19:53] VITALS: BP 115/78
[2019-07-19] MEDS: TRAZODONE 100MG TABLET PO PRN (20:51)
[2019-07-20 07:35] VITALS: BP 107/68
[2019-07-20] MEDS: SERTRALINE 50MG TABLET PO SCH (08:10)
[2019-07-20] MEDS: LURASIDONE 20 MG TABLET PO SCH (08:10)
[2019-07-20] MEDS: QUETIAPINE 100MG TABLET PO SCH (08:10)
[2019-07-20] MEDS: IBUPROFEN 200 MG TABLET PO PRN (08:14)
[2019-07-20] MEDS: DIAZEPAM 5 MG TABLET PO PRN (08:14)
== END 2019-07-20 09:56 | disposition home or self-care (01) | DRG 885 ==
LOC: 3E 14:37
PROVIDERS: ADMIT Psychiatry & Neurology Psychosomatic Medicine; ATTEND Psychiatry & Neurology Psychosomatic Medicine
DX: F31.5 Bipolar disorder, current episode depressed, severe, with psychotic features (principal); R45.851 Suicidal ideations; F11.20 Opioid dependence, uncomplicated; F15.20 Other stimulant dependence, uncomplicated; F10.10 Alcohol abuse, uncomplicated; F41.9 Anxiety disorder, unspecified; F60.3 Borderline personality disorder; K21.9 Gastro-esophageal reflux disease without esophagitis; F17.200 Nicotine dependence, unspecified, uncomplicated; Z79.899 Other long term (current) drug therapy; Z88.8 Allergy status to other drugs, medicaments and biological substances; Z59.0 Homelessness
CPT/HCPCS: 36415; 80053; 80061; 81001; 84439; 84443; 85025

== ENCOUNTER 2019-08-28 16:42 | Emergency (ER) | payer MEDICARE, MEDICAID ==
[~2019-08-28] VITALS: Ht 177.8 cm; Wt 72.7 kg
[~2019-08-28 16:42] MED LIST changes: +ARIP10TA33 PO; +BACL5TAB PO; +LURA20TA PO; +OMEP20CA20 PO; +QUET100T PO
[2019-08-28] MEDS ORDERED: HALOPERIDOL 5 MG TABLET ONE (17:06)
[2019-08-28] MEDS ORDERED: DIPHENHYDRAMINE 50 MG CAPSULE ONE (17:06)
[2019-08-28] MEDS ORDERED: LORazepam 1MG TABLET ONE (17:06)
[2019-08-28 17:25] LABS: BASOPHILS # (AUTO) 0.02 x10^3/uL (0-0.1); BASOPHILS % (AUTO) 0 % (0-1); EOSINOPHILS # (AUTO) 0.09 x10^3/uL (0-0.4); EOSINOPHILS % (AUTO) 1 % (1-7); LYMPHOCYTES # (AUTO) 2.44 x10^3/uL (1-3.4); LYMPHOCYTES % (AUTO) 30 % (22-44); MD NO; MEAN CORPUSCULAR HEMOGLOBIN 30.7 pg (27.0-34.8); MEAN PLATELET VOLUME 6.3 fL (7.4-10.4); MONOCYTES # (AUTO) 0.63 x10^3/uL (0.2-0.8); MONOCYTES % (AUTO) 8 % (2-9); NEUTROPHILS # (AUTO) 4.87 x10^3/uL (1.8-6.8); NEUTROPHILS % (AUTO) 61 % (42-75); PLATELET COUNT 327 x10^3/uL (130-400); RED BLOOD COUNT 3.69 x10^6/uL (3.82-5.3); RED CELL DISTRIBUTION WIDTH 14.9 % (9.6-15.2)
[2019-08-28] MEDS ORDERED: DIPHENHYDRAMINE 50 MG/ML, 1ML IM PRN (17:30)
[2019-08-28] MEDS: PLEASE ENTER HEIGHT AND WEIGHT MC SCH (17:30)
[2019-08-28] MEDS ORDERED: LORazepam 2 MG/ML, 1ML IM PRN (17:30)
[2019-08-28] MEDS: DIPHENHYDRAMINE 50 MG CAPSULE PO PRN (17:30)
[2019-08-28] MEDS: LORazepam 1MG TABLET PO PRN (17:30)
--- NOTE | 2019-08-28 17:30 | NUR ---
MEDICATED PER EMAR UDS SENT
--- NOTE | 2019-08-28 17:34 | NUR ---
PT MOVED FROM ROOM 13 TO ROOM 2 FOR CONVENIENCE. SITTER OUTSIDE ROOM. REPORT RC'VD FROM DRE GRAY.
[2019-08-28 17:37] LABS: ALANINE AMINOTRANSFERASE 27 U/L (12-78); ALBUMIN 3.6 g/dL (3.4-5.0); ANION GAP 6 mmol/L (5-15); CALCIUM 8.9 mg/dL (8.5-10.1); CHLORIDE 107 mmol/L (98-107); CREATININE 0.98 mg/dL (0.55-1.02)
[2019-08-28 17:38] LABS: SALICYLATE LEVEL < 1.7 mg/dL (2.8-20.0)
--- NOTE | 2019-08-28 17:40 | NUR ---
MOVED TO ROOM 2. REPORT TO EULALIA GRAY.
[2019-08-28 17:42] LABS: ALKALINE PHOSPHATASE 86 U/L (45-117); BILIRUBIN,TOTAL 0.3 mg/dL (0.2-1.0)
[2019-08-28 18:04] LABS: AMPHETAMINE SCREEN, URINE Negative (Negative); BARBITURATE SCREEN, URINE Negative (Negative); BENZODIAZEPINE SCREEN, URINE Negative (Negative); CANNABINOID SCREEN, URINE Negative (Negative); COCAINE SCREEN, URINE Negative (Negative); METHADONE SCREEN, URINE Negative (Negative); OPIATE SCREEN, URINE Negative (Negative)
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
--- NOTE | 2019-08-28 18:33 | NUR ---
PT SITTING UP IN GURNEY EATING DINNER. CALM AT THIS TIME.
--- NOTE | 2019-08-28 19:56 | NUR ---
REPORTED TO WILFRIDO GRAY.
--- NOTE | 2019-08-28 20:29 | NUR ---
PT ASLEEP IN BED. NAD NOTED AT THIS TIME. SITTER OUTSIDE OF ROOM FOR DIRECT OBSERVATION AND Q15 MIN SAFETY CHECKS.
--- NOTE | 2019-08-28 21:17 | NUR ---
PT ASLEEP IN BED, NAD NOTED AT THIS TIME. RESPIRATIONS EVEN AND UNLABORED ON RA. SITTER OUTSIDE OF ROOM FOR DIRECT OBSERVATION AND Q15 MIN SAFETY CHECKS.
--- NOTE | 2019-08-28 21:32 | NUR ---
MT: MICKEY CALLED AND REFUSED PT.
--- NOTE | 2019-08-28 21:51 | NUR ---
VALERIE RN: PACKET FAXED TO [facility], [facility], [facility], [facility]. AWAITING CONFIRMATION.
--- NOTE | 2019-08-28 22:10 | NUR ---
PT ASLEEP IN BED, MOVES INDEPENDENTLY FOR POSITION OF COMFORT. NAD NOTED AT THIS TIME. RESPIRATIONS EVEN AND UNLABORED ON RA. SITTER OUTSIDE OF ROOM FOR DIRECT OBSERVATIONS AND Q15 MIN SAFETY CHECKS.
--- NOTE | 2019-08-28 22:20 | NUR ---
VALERIE RN: CONFIRMATION FAX RECEIVED FROM [facility], [facility], [facility], AND [facility]. [facility] WAS BUSY; WILL ATTEMPT AGAIN.
--- NOTE | 2019-08-28 23:00 | NUR ---
MT: [facility] STATED THEIR BEDS WERE FULL, BUT WOULD CALL IF THERE WAS AN OPENING. [place] DENIED PT DUE TO PT BEING ON DO NOT ADMIT LIST.
--- NOTE | 2019-08-28 23:02 | NUR ---
PT AMBULATES WELL TO BATHROOM INDEPENDENTLY, AWAKENING FOR FIRST TIME SINCE THIS RN ASSUMED CARE. PT AGREEABLE AT THIS TIME.
--- NOTE | 2019-08-28 23:11 | NUR ---
REPORT TO ISAAC MIRANDA. AWAITING MED FROM PHARMACY.
--- NOTE | 2019-08-28 23:15 | NUR ---
assumed care of pt. report from Ankita GRAY. pt here on Legal Hold for unable to care for self. per report, pt was severely agitated upon admit, but is calm at this time. no apparent distress belongings have been secured previously. room secure. sitter present for safety. will continue to monitor
--- NOTE | 2019-08-28 23:51 | NUR ---
attempted to enter room to assess pt, pt sleeping at this time. will continue to monitor room secure. sitter present for safety
--- NOTE | 2019-08-29 00:15 | NUR ---
pt now yelling at staff. calling staff "racist" states that she wants meal tray. attempting to calm pt
--- NOTE | 2019-08-29 00:45 | NUR ---
meal delivered per request. pt mediacted per order. ptr cooperative room secure. sitter present for safety
[2019-08-29] MEDS ORDERED: QUETIAPINE 100MG TABLET ONE (00:46)
[2019-08-29] MEDS: QUETIAPINE 100MG TABLET PO SCH ×2 (00:48→21:00)
--- NOTE | 2019-08-29 00:59 | NUR ---
report to Morelia GRAY for lunch
[2019-08-29] MEDS: PLEASE ENTER HEIGHT AND WEIGHT MC SCH ×3 (01:30→17:30)
--- NOTE | 2019-08-29 01:55 | NUR ---
pt is sleeping in position of comfort with lights dimmed. no apparent distress room secure. sitter present for safety
--- NOTE | 2019-08-29 02:57 | NUR ---
no changes. pt continues sleeping in position of comfort. room secure. sitter present for safety
--- NOTE | 2019-08-29 04:00 | NUR ---
no changes. pt sleeping in position of comfort wih lights dimmed. no apparent distress room secure. sitter present fo safety
--- NOTE | 2019-08-29 05:05 | NUR ---
no changes. pt sleeping in posiion of comfort with lights dimmed. no apparent distress room secure. sitter present for safety
--- NOTE | 2019-08-29 06:38 | NUR ---
pt coninues sleeping. no apparent distress. room secure. sitter present for safety
--- NOTE | 2019-08-29 06:59 | NUR ---
REPORT RECEIVED FROM RUBEN GRAY. PT IS SLEEPING ON GURNEY, RESP EVEN AND UNLABORED, NADN. SITTER OUTSIDE ROOM AND GARAGE DOORS DOWN FOR SAFETY.
--- NOTE | 2019-08-29 06:59 | NUR ---
no changes. pt resting. report to Evangelina GRAY
--- NOTE | 2019-08-29 07:02 | NUR ---
BREAKFAST TRAY ORDERED.
--- NOTE | 2019-08-29 07:20 | NUR ---
0900 MED REQ FROM PHARMACY.
--- NOTE | 2019-08-29 07:23 | NUR ---
HOSPITAL BED REQUESTED.
--- NOTE | 2019-08-29 07:50 | NUR ---
PT COOPERATIVE W/ VS. PT DENIES SI, REPORTS "I JUST FEEL HUNGRY AND AGITATED AND DEPRESSED". PT GIVEN CEREAL AND CRACKERS UNTIL BREAKFAST TRAY ARRIVES. POC EXPLAINED TO PT. PSYCH PHOSPHORIC ACID SUPERVISOR TO EVALUATE BETWEEN [id number], PT WILL BE TRANSFERED TO HOSPITAL BED, PT OFFERED SHOWER, AGREED TO SHOWER AFTER LUNCH.
--- NOTE | 2019-08-29 08:16 | NUR ---
BREAKFAST TRAY DELIVERED. PT TRANSFERED STEADILY ONTO A HOSPITAL BED.
[2019-08-29] MEDS: LURASIDONE 20 MG TABLET PO SCH (08:38)
--- NOTE | 2019-08-29 08:39 | NUR ---
BREAK RN: PT MED NOTED. PT INQUIRED ABOUT HER SEROQUEL, I INFORMED HER THAT IT IS SCHEDULED FOR 2100 TONIGHT. PT STATED THAT SHE NORMALLY TAKES IT TWICE A DAY, SHE ALSO WANTED TO KNOW IF A "PHYSICAL DOCTOR" WOULD BE SEEING HER TODAY. I INFORMED HER THAT I WOULD HAVE HER PRIMARY RN, CLINTON LOOK IN TO BOTH OF HER CONCERNS.
--- NOTE | 2019-08-29 09:22 | NUR ---
PT RESTING ON HOSPITAL BED W/ SITTER OUTSIDE ROOM, GARAGE DOORS DOWN FOR SAFETY. LILI.
--- NOTE | 2019-08-29 10:15 | NUR ---
PT SLEEPING ON HOSPITAL BED W/ SITTER OUTSIDE ROOM, GARAGE DOORS DOWN FOR SAFETY. NADN.
--- NOTE | 2019-08-29 11:04 | NUR ---
PT SLEEPING ON HOSPITAL BED W/ SITTER OUTSIDE ROOM, GARAGE DOORS DOWN FOR SAFETY. NADN.
--- NOTE | 2019-08-29 12:22 | NUR ---
LUNCH TRAY DELIVERED.
--- NOTE | 2019-08-29 12:48 | NUR ---
PT RESTING ON HOSPITAL BED W/ SITTER OUTSIDE ROOM, GARAGE DOORS DOWN FOR SAFETY. LILI.
--- NOTE | 2019-08-29 13:58 | NUR ---
PT RESTING ON HOSPITAL BED W/ SITTER OUTSIDE ROOM, GARAGE DOORS DOWN FOR SAFETY. LIIL.
--- NOTE | 2019-08-29 14:09 | NUR ---
TASK RN: PT RESTING IN BED. SITTER REMAINS AT BEDSIDE. ROOM REMAINS SECURE.
--- NOTE | 2019-08-29 15:30 | NUR ---
PT RESTING ON HOSPITAL BED W/ SITTER OUTSIDE ROOM, GARAGE DOORS DOWN FOR SAFETY. LILI.
--- NOTE | 2019-08-29 16:20 | NUR ---
PT REPORTS FEELING INCREASED AGITATION. REQUESTING ATIVAN.
[2019-08-29] MEDS ORDERED: LORazepam 2 MG/ML, 1ML ONE (16:21)
--- NOTE | 2019-08-29 17:00 | NUR ---
DINNER TRAY DELIVERED.
--- NOTE | 2019-08-29 18:12 | NUR ---
PT RESTING ON HOSPITAL BED W/ SITTER OUTSIDE ROOM, GARAGE DOORS DOWN FOR SAFETY. LILI.
--- NOTE | 2019-08-29 18:56 | NUR ---
Report received from ISAAC Hutchinson. This RN to assume care.
--- NOTE | 2019-08-29 19:15 | NUR ---
Patient sleeping in hospital bed. Respirations even and unlabored. Room secured, belongings in locked cabinet. Sitter outside.
--- NOTE | 2019-08-29 20:23 | NUR ---
Patient sleeping in hospital bed. Respirations even and unlabored. Room secured, belongings in locked cabinet. Sitter outside.
--- NOTE | 2019-08-29 21:15 | NUR ---
Patient up to bathroom and back to bed. Patient has no complaints at this time. Room secured, belongings in locked cabinet. Sitter outside.
--- NOTE | 2019-08-29 22:30 | NUR ---
Patient sleeping in hospital bed. Respirations even and unlabored. Room secured, belongings in locked cabinet. Sitter outside.
--- NOTE | 2019-08-29 23:51 | NUR ---
Patient sleeping in hospital bed. Respirations even and unlabored. Room secured, belongings in locked cabinet. Sitter outside.
--- NOTE | 2019-08-30 00:49 | NUR ---
Patient sleeping in hospital bed. Respirations even and unlabored. Room secured, belongings in locked cabinet. Sitter outside.
--- NOTE | 2019-08-30 01:06 | NUR ---
RECEIVED REPORT FROM ISAAC MEJIAS TO ASSUME CARE OF PT. AT THIS TIME. PT. RESTING ON HOSPITAL BED IN SECURED ROOM WITH SITTER IN DIRECT VIEW. EYES CLOSED. RESPIRATIONS VISIBLE AND NON LABORED. NO DISTRESS NOTED.
[2019-08-30] MEDS: PLEASE ENTER HEIGHT AND WEIGHT MC SCH ×2 (01:30→19:51)
--- NOTE | 2019-08-30 02:23 | NUR ---
PT. CONTINUES RESTING ON BED WITH EYES CLOSED. EVEN, NON-LABORED RESPIRATIONS VISIBLE. ALL SAFETY/SI MEASURES REMAIN IN PLACE.
--- NOTE | 2019-08-30 03:08 | NUR ---
REPORT FROM MAITE GRAY, PT SLEEPING IN NAD, EVEN AND UNLABORED RESPIRATIONS. SITTER AT DOORWAY FOR SAFETY MONITORING.
--- NOTE | 2019-08-30 04:07 | NUR ---
PT CONTINUES TO SLEEP NADN. EVEN AND UNLABORED RESPIRATIONS. SITTER MONITORING FROM OUTSIDE OF ROOM.
--- NOTE | 2019-08-30 05:42 | NUR ---
SLEEPING, EVEN AND UNLABORED RESPIRATIONS OBSERVED. SITTER OUTSIDE OF ROOM FOR SAFETY WATCH.
[2019-08-30] MEDS ORDERED: LORazepam 1MG TABLET ONE ×2 (06:10→11:46)
[2019-08-30] MEDS: LORazepam 1MG TABLET PO PRN ×2 (06:12→11:51)
--- NOTE | 2019-08-30 06:12 | NUR ---
PT REPORTS FEELING ANXIOUS REQUESTING MED FOR ANXIETY, PT MEDICATED PER MAR. SITTER WATCHING FOR SAFETY.
--- NOTE | 2019-08-30 06:57 | NUR ---
REPORT GIVEN TO MICHELE GRAY.
--- NOTE | 2019-08-30 07:02 | NUR ---
ASSUMED CARE AFTER RECEIVING REPORT FROM GEORGE RN. PT IN DIRECT VIEW OF SITTER AND ROOM SUPPLIES SECURED BEHIND PULL DOWN DOOR
[2019-08-30] MEDS: LURASIDONE 20 MG TABLET PO SCH (08:58)
--- NOTE | 2019-08-30 11:16 | NUR ---
PT UOB TO SHOWER WITH TECH. BED LINEN CHANGED
--- NOTE | 2019-08-30 11:35 | NUR ---
TONYA LOPEZ SPEAKING WITH PT
[2019-08-30] MEDS ORDERED: DIPHENHYDRAMINE 50 MG CAPSULE ONE (11:55)
[2019-08-30] MEDS: DIPHENHYDRAMINE 50 MG CAPSULE PO PRN (12:04)
--- NOTE | 2019-08-30 12:30 | NUR ---
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 PT STATES SHE IS NOT HOMICIDAL OR SUICIDAL AND IS ANXIOUS BECAUSE REMAINS ON A LEGAL 2000. DISCUSSED IT AT LENGTH AND ANSWERED PT'S QUESTIONS. PROVIDED LUNCH
--- NOTE | 2019-08-30 15:04 | NUR ---
PER [facility] PT OUT OF LIFETIME DAYS. N[facility] ONLY
--- NOTE | 2019-08-30 15:45 | NUR ---
PT AGITATED AND TALKING WITH SITTER. REMAINS IN ROOM
--- NOTE | 2019-08-30 19:04 | NUR ---
REPORT TO KALINA GRAY
--- NOTE | 2019-08-30 19:27 | NUR ---
RECEIVED REPORT FROM ISAAC BAUTISTA AT 1905. PT LAYING IN BED, RESPIRATIONS EVEN AND UNLABORED, EYES CLOSED. ALL BELONGINGS IN LOCKER. PT REMAINS IN VIEW OF SITTER.
[2019-08-30] MEDS ORDERED: QUETIAPINE 100MG TABLET ONE ×2 (20:58→21:11)
[2019-08-30] MEDS: QUETIAPINE 100MG TABLET PO SCH ×2 (21:00→21:06)
--- NOTE | 2019-08-30 21:07 | NUR ---
PATIENT GIVEN TOTAL OF 300MG SEROQUEL PO, PER APR.
--- NOTE | 2019-08-30 22:41 | NUR ---
PT HAS EATEN DINNER TRAY, DENIES SI/ HI. PT CALM AND LAYING IN BED, REMAINS IN VIEW OF THE SITTER.
--- NOTE | 2019-08-31 00:55 | NUR ---
PT SLEEPING, IN VIEW OF SITTER.
--- NOTE | 2019-08-31 02:20 | NUR ---
Break RN: Patient sleeping in hospital bed. Room secured, belongings in locked cabinet, sitter outside.
--- NOTE | 2019-08-31 03:42 | NUR ---
REPORT RECIEVED FROM OFFGOING RN.
--- NOTE | 2019-08-31 04:32 | NUR ---
PATIENT RESTING IN BED, NO NOTED NEEDS AT THIS TIME. SITTER WITHIN VIEW OF PATIENT. WILL CONTINUE TO MONITOR.
--- NOTE | 2019-08-31 05:38 | NUR ---
PATIENT RESTING IN BED, NO NOTED NEEDS AT THIS TIME. SITTER WITHIN VIEW OF PATIENT. WILL CONTINUE TO MONITOR.
--- NOTE | 2019-08-31 06:35 | NUR ---
PATIENT'S VITAL SIGNS WITHIN NORMAL LIMITS. DENIES ANY FURTHER NEEDS AT THIS TIME. SITTER WITHIN VIEW OF PATIENT.
--- NOTE | 2019-08-31 07:49 | NUR ---
safety precautions in place
[2019-08-31] MEDS ORDERED: QUETIAPINE 100MG TABLET ONE ×2 (07:51→21:01)
[2019-08-31] MEDS: QUETIAPINE 100MG TABLET PO SCH ×2 (07:55→21:00)
[2019-08-31] MEDS: LURASIDONE 20 MG TABLET PO SCH (07:55)
--- NOTE | 2019-08-31 13:13 | NUR ---
DAINA JENSEN AT BEDSIDE FOR EVALUATION
--- NOTE | 2019-08-31 14:09 | NUR ---
Pt up to shower, safety precautions in place
[2019-08-31] MEDS ORDERED: LORazepam 1MG TABLET ONE (14:44)
[2019-08-31] MEDS: LORazepam 1MG TABLET PO PRN (14:51)
--- NOTE | 2019-08-31 14:52 | NUR ---
Pt feeling anxious, requested prn ativan.
--- NOTE | 2019-08-31 15:25 | NUR ---
PT UPDATED ON POC, SAFETY PRECAUTIONS IN PLACE
[2019-08-31] MEDS ORDERED: ACETAMINOPHEN 500 MG TABLET ONE (15:44)
--- NOTE | 2019-08-31 15:48 | NUR ---
PT AGITATED ABOUT LEGAL HOLD. NOTIFIED. ALSO COMPLAINS OF KUNZ, MEDICATED ORDERED.
[2019-08-31] MEDS ORDERED: ACETAMINOPHEN 500 MG TABLET PO ONE (16:00)
[2019-08-31] MEDS ORDERED: DIPHENHYDRAMINE 50 MG CAPSULE ONE (16:50)
--- NOTE | 2019-08-31 16:58 | NUR ---
ANXIETY AGAIN INCREASING, MEDICATION PROVIDED.
--- NOTE | 2019-08-31 18:51 | NUR ---
REPORT TO CAMRON GRAY
--- NOTE | 2019-08-31 19:02 | NUR ---
PT RESP EVEN AND UNLABORED. SITTER IN DIRECT LINE OF SIGHT. NO CURRENT REQUESTS.
--- NOTE | 2019-08-31 21:11 | NUR ---
Pt updated on plan of care, medicated per emar. Resp even and unlabored. Pt denying any SI or HI at this time.
--- NOTE | 2019-09-01 03:59 | NUR ---
Pt resting on hospital bed. Resp even and unlabored. Sitter in direct line of sight.
--- NOTE | 2019-09-01 06:14 | NUR ---
Pt resting on hospital bed. Resp even and unlabored. Sitter in direct line of sight. Meal tray ordered
[2019-09-01] MEDS ORDERED: LURASIDONE 20 MG TABLET PO SCH (08:00)
[2019-09-01] MEDS ORDERED: SERTRALINE 50MG TABLET PO SCH (09:00)
--- NOTE | 2019-09-01 09:06 | NUR ---
pt received breakfast tray. requests to speak with kota hurley because she wants to get out of here. pt demonstrates and verbalizes anxiety. agreeable to take po meds. sitter monitoring from hallway. pt denies further needs at this time
[2019-09-01] MEDS ORDERED: DIPHENHYDRAMINE 50 MG CAPSULE ONE (09:09)
[2019-09-01] MEDS ORDERED: LORazepam 1MG TABLET ONE (09:10)
[2019-09-01] MEDS: DIPHENHYDRAMINE 50 MG CAPSULE PO PRN (09:13)
[2019-09-01] MEDS: LORazepam 1MG TABLET PO PRN (09:14)
[2019-09-01] MEDS: QUETIAPINE 100MG TABLET PO SCH (09:14)
[2019-09-01 09:19] VITALS: BP 113/73
--- NOTE | 2019-09-01 10:40 | NUR ---
DISCUSSED POC WITH TONYA LOPEZ. OK TO DC PT AT THIS TIME.
--- NOTE | 2019-09-01 10:41 | NUR ---
PT RECEIVED ALL BELONGINGS AT THIS TIME. TAXI VOUCHER. PT VERBALIZES UNDERSTANDING OF POC AND DC INSTRUCTIONS. PT DENIES FURTHER NEEDS AT THIS TIME
== END 2019-09-01 11:02 | disposition home or self-care (01) ==
LOC: ED 18:38
DX: F23 Brief psychotic disorder (principal); F31.9 Bipolar disorder, unspecified; I10 Essential (primary) hypertension
CPT/HCPCS: 36415; 80053; 80307; 84703; 85025; 96372; 99285; J2060

== ENCOUNTER 2019-09-04 22:02 | Emergency (ER) | payer MEDICARE, MEDICAID ==
[~2019-09-04] VITALS: Ht 177.8 cm; Wt 80.0 kg
[2019-09-04 22:06] VITALS: BP 117/73
--- NOTE | 2019-09-04 22:19 | NUR ---
Pt presents to ed c/o abd pain. yelling and screaming at staff. "you aint touching my shit" walked out ambulance bay and came back inside. Pt hesitant on staying, but this rn reoriented. Pt abd pain is generalized and pt cannot describe pain type. "im just really dehydrated." Responding to apparent visual and auditory cues.
--- NOTE | 2019-09-04 22:28 | NUR ---
Pt given water bottle and successfully drank.
--- NOTE | 2019-09-04 22:32 | NUR ---
Pt yelling at staff and saying "aint nobody here shubham to help me, this is bullshit." "yall are just a bunch of assholes." for reassessment and states pt no longer to be here.
== END 2019-09-04 22:35 | disposition home or self-care (01) ==
LOC: ED 22:26
DX: F29 Unspecified psychosis not due to a substance or known physiological condition (principal); E86.0 Dehydration; I10 Essential (primary) hypertension; F17.200 Nicotine dependence, unspecified, uncomplicated
CPT/HCPCS: 99283

== ENCOUNTER 2019-10-01 14:31 | Emergency (ER) | payer MEDICARE, MEDICAID ==
--- NOTE | 2019-10-01 14:52 | NUR ---
PT GIVEN UA CUP IN LOBBY
--- NOTE | 2019-10-01 15:03 | NUR ---
CALLED NO ANSWER
--- NOTE | 2019-10-01 15:25 | NUR ---
PT AGGRESSIVLY LEFT TRIAGE ROOM, SLAMMED TRIAGE ON TECH.
== END 2019-10-01 15:27 ==
LOC: ED 15:20
DX: N39.0 Urinary tract infection, site not specified (principal); Z53.21 Procedure and treatment not carried out due to patient leaving prior to being seen by health care provider

== ENCOUNTER 2019-10-03 18:38 | Emergency (ER) | payer SELFPAY ==
[~2019-10-03] VITALS: Ht 172.7 cm; Wt 69.6 kg
--- NOTE | 2019-10-03 18:44 | NUR ---
NIL X 1 [phone]
[2019-10-03 19:15] VITALS: BP 126/103
--- NOTE | 2019-10-03 20:28 | NUR ---
PT CALLED TO ROOM FROM LOBBY
--- NOTE | 2019-10-03 20:30 | NUR ---
Pt here for dehydration and possible urinary tract infection. Pt provided urine but then covered herself with the blankets and became uncooperative. Pt refusing to speak to nurse or doctor. Pt demanding to sleep and to fix her dehydration
[2019-10-03 20:59] LABS: MICROSCOPIC INDICATED
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
== END 2019-10-03 22:39 | disposition home or self-care (01) ==
LOC: EDBD → MERGE 18:38 → ED 22:32
DX: R39.9 Unspecified symptoms and signs involving the genitourinary system (principal); E86.0 Dehydration; R45.1 Restlessness and agitation
CPT/HCPCS: 81001; 99283

== ENCOUNTER 2019-10-03 19:31 | Emergency (ER) | payer MEDICAID, MEDICARE ==
[2019-10-03 20:54] LABS: BASOPHILS # (AUTO) 0.04 x10^3/uL (0-0.1); BASOPHILS % (AUTO) 1 % (0-1); EOSINOPHILS # (AUTO) 0.07 x10^3/uL (0-0.4); EOSINOPHILS % (AUTO) 1 % (1-7); LYMPHOCYTES # (AUTO) 3.05 x10^3/uL (1-3.4); LYMPHOCYTES % (AUTO) 39 % (22-44); MD NO; MEAN CORPUSCULAR HEMOGLOBIN 31.9 pg (27.0-34.8); MEAN CORPUSCULAR HGB CONC 32.2 g/dL (32.4-35.8); MEAN CORPUSCULAR VOLUME 99.1 fL (80-100); MEAN PLATELET VOLUME 6.7 fL (7.4-10.4); MONOCYTES # (AUTO) 0.73 x10^3/uL (0.2-0.8); MONOCYTES % (AUTO) 9 % (2-9); NEUTROPHILS # (AUTO) 3.98 x10^3/uL (1.8-6.8); NEUTROPHILS % (AUTO) 51 % (42-75); PLATELET COUNT 248 x10^3/uL (130-400); RED BLOOD COUNT 3.37 x10^6/uL (3.82-5.3); RED CELL DISTRIBUTION WIDTH 14.4 % (9.6-15.2)
[2019-10-03 21:03] LABS: ANION GAP 5 mmol/L (5-15); CALCIUM 8.2 mg/dL (8.5-10.1); CHLORIDE 107 mmol/L (98-107); CREATININE 0.82 mg/dL (0.55-1.02)
== END 2019-10-03 22:01 | disposition home or self-care (01) ==
LOC: ED 21:30
DX: E86.0 Dehydration (principal); F15.10 Other stimulant abuse, uncomplicated; Z72.9 Problem related to lifestyle, unspecified; I10 Essential (primary) hypertension; F17.200 Nicotine dependence, unspecified, uncomplicated
CPT/HCPCS: 36415; 80048; 85025; 99283

== ENCOUNTER 2019-10-25 17:22 | Emergency (ER) | payer MEDICARE, OTHER ==
[~2019-10-25] VITALS: Ht 177.8 cm; Wt 69.2 kg
--- NOTE | 2019-10-25 18:31 | NUR ---
TASK RN: PT TO ROOM FROM [facility]. INSTRUCTED ON COLLECTION OF CLEAN CATCH URINE. PT AMBULATED TO BATHROOM, UPRIGHT STEADY GAIT. URINE SAMPLE COLLECTED AND SENT TO LAB. PT ON GURNEY, WARM BLANKETS PROVIDED. PT WITH JERKY, RESTLESS MOVEMENTS. PT ADMITS TO CRYTAL METH USE LAST NIGHT. C/O PAIN WITH URINATION AND RIGHT GROIN PAIN.
[2019-10-25 18:46] LABS: MICROSCOPIC INDICATED
--- NOTE | 2019-10-25 18:49 | NUR ---
PT RESISTING ANSWERING QUESTIONS. PT STATES "I'M A TRANSCRIPTION". PT'S MALE FRIEND NOW IN ROOM.
--- NOTE | 2019-10-25 18:51 | NUR ---
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
--- NOTE | 2019-10-25 18:55 | NUR ---
THIS RN STANDING AT DOORWAY. PT YELLING AT THIS RN. JUMPED OFF BED TOWARD THIS RN, YELLING ABOUT BEING IN HER SPACE. THIS RN BACKED UP AND SHUT THE DOOR. PT CONTINUED TO YELL. WILL CONSULT PROVIDER.
[2019-10-25 19:19] LABS: ALANINE AMINOTRANSFERASE 34 U/L (12-78); ALBUMIN 3.6 g/dL (3.4-5.0); ANION GAP 5 mmol/L (5-15); CALCIUM 9.4 mg/dL (8.5-10.1); CHLORIDE 112 mmol/L (98-107)
[2019-10-25 19:21] LABS: ALKALINE PHOSPHATASE 93 U/L (45-117); BILIRUBIN,TOTAL 0.9 mg/dL (0.2-1.0); TOTAL PROTEIN 7.7 g/dL (6.4-8.2)
[2019-10-25 19:24] LABS: MEAN CORPUSCULAR HEMOGLOBIN 31.5 pg (27.0-34.8); MEAN CORPUSCULAR HGB CONC 32.1 g/dL (32.4-35.8); MEAN CORPUSCULAR VOLUME 97.9 fL (80-100); MEAN PLATELET VOLUME 7.1 fL (7.4-10.4); PLATELET COUNT 264 x10^3/uL (130-400); RED BLOOD COUNT 3.31 x10^6/uL (3.82-5.3); RED CELL DISTRIBUTION WIDTH 14.2 % (9.6-15.2)
[2019-10-25 19:39] LABS: BASOPHILS # (AUTO) 0.04 x10^3/uL (0-0.1); BASOPHILS % (AUTO) 0 % (0-1); EOSINOPHILS # (AUTO) 0.05 x10^3/uL (0-0.4); EOSINOPHILS % (AUTO) 1 % (1-7); LYMPHOCYTES # (AUTO) 2.69 x10^3/uL (1-3.4); LYMPHOCYTES % (AUTO) 29 % (22-44); MD NO; MONOCYTES # (AUTO) 1.02 x10^3/uL (0.2-0.8); MONOCYTES % (AUTO) 11 % (2-9); NEUTROPHILS # (AUTO) 5.55 x10^3/uL (1.8-6.8); NEUTROPHILS % (AUTO) 59 % (42-75)
[2019-10-25] MEDS ORDERED: SERT-238 PO (19:48)
[2019-10-25] MEDS ORDERED: QUET400T PO (19:48)
[2019-10-25] MEDS ORDERED: DIAZ5TAB4 PO (19:48)
[2019-10-25] MEDS ORDERED: TRAZ150T62 PO (19:49)
[2019-10-25] MEDS ORDERED: IBUPROFEN 600 MG TABLET ONE (19:52)
[2019-10-25] MEDS ORDERED: IBUPROFEN 200 MG TABLET PO ONE (20:00)
[2019-10-25 20:21] LABS: AMPHETAMINE SCREEN, URINE Positive (Negative); BARBITURATE SCREEN, URINE Negative (Negative); BENZODIAZEPINE SCREEN, URINE Positive (Negative); CANNABINOID SCREEN, URINE Positive (Negative); COCAINE SCREEN, URINE Negative (Negative); METHADONE SCREEN, URINE Negative (Negative); OPIATE SCREEN, URINE Negative (Negative)
--- NOTE | 2019-10-25 20:26 | NUR ---
PT REFUSING DISCHARGE. SECURITY WILL BE CALLED.
--- NOTE | 2019-10-25 20:30 | NUR ---
SECURITY PRESENT; PT CONTINUING TO REFUSE DISCHARGE; PT HAS HER DC PAPERWORK.
== END 2019-10-25 20:50 | disposition home or self-care (01) ==
LOC: ED 19:11
DX: R30.0 Dysuria (principal); L24.9 Irritant contact dermatitis, unspecified cause; F15.10 Other stimulant abuse, uncomplicated; Z72.9 Problem related to lifestyle, unspecified; E86.0 Dehydration; I10 Essential (primary) hypertension; F17.200 Nicotine dependence, unspecified, uncomplicated
CPT/HCPCS: 36415; 80053; 80307; 81001; 85025; 87086; 87491; 87591; 99283

== ENCOUNTER 2019-10-26 18:21 | Emergency (ER) | payer MEDICARE ==
[~2019-10-26 18:21] MED LIST changes: +DIAZ5TAB4 PO; +QUET400T PO; +SERT-238 PO; +TRAZ150T62 PO
== END 2019-10-26 19:13 ==
LOC: ED 18:40
DX: N39.0 Urinary tract infection, site not specified (principal); Z53.21 Procedure and treatment not carried out due to patient leaving prior to being seen by health care provider

== ENCOUNTER 2019-10-26 19:28 | Emergency (ER) | payer MEDICARE ==
[~2019-10-26] VITALS: Ht 177.8 cm; Wt 72.4 kg
[2019-10-26 19:47] VITALS: BP 105/76
--- NOTE | 2019-10-26 20:28 | NUR ---
called for room, no answer, next pt roomed.
[2019-10-26 20:31] LABS: HCG UR SG 1.009 (1.003-1.030)
[2019-10-26 20:48] LABS: MICROSCOPIC INDICATED
[2019-10-26] MEDS ORDERED: CEFTRIAXONE 250 MG IM ONE (22:30)
[2019-10-26] MEDS ORDERED: AZITHROMYCIN 500 MG TABLET PO ONE (22:30)
[2019-10-26] MEDS ORDERED: AZITHROMYCIN 500 MG TABLET ONE (22:46)
[2019-10-26] MEDS ORDERED: CEFTRIAXONE 250 MG ONE (22:46)
[2019-10-26] MEDS ORDERED: LIDOCAINE-MPF 1%, 2ML ONE (22:46)
== END 2019-10-26 23:12 | disposition home or self-care (01) ==
LOC: ED 22:51
DX: R30.0 Dysuria (principal); F15.129 Other stimulant abuse with intoxication, unspecified; M54.5 Low back pain; I10 Essential (primary) hypertension; F17.200 Nicotine dependence, unspecified, uncomplicated; Z72.9 Problem related to lifestyle, unspecified
CPT/HCPCS: 81001; 81025; 96372; 99283; J0696

== ENCOUNTER 2019-12-30 15:28 | Emergency (ER) | payer MEDICAID, MEDICARE ==
[~2019-12-30] VITALS: Ht 177.8 cm; Wt 73.0 kg
--- NOTE | 2019-12-30 15:36 | NUR ---
THIS IS A 49 YEAR OLD FEMALE WHO WAS BIB BY AMBULANCE DUE TO FLU LIKE S/S. PT C/O OF FATIQUE, FEVER AND LOOSE STOOL, WITH SOB. 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 PT TEMP 101.1, RECEIVED TYLENOL IN ROUTE AND 250CC NS BY EMS.
[2019-12-30] MEDS ORDERED: SODIUM CHLORIDE FLUSH 10ML SYR IVF ONE (16:00)
[2019-12-30] MEDS ORDERED: SODIUM CHLORIDE 0.9% 1,000ML IVBOLUS ONE (16:00)
[2019-12-30 16:46] LABS: BASOPHILS % (AUTO) 1 % (0-1); EOSINOPHILS % (AUTO) 0 % (1-7); LYMPHOCYTES % (AUTO) 14 % (22-44); MEAN CORPUSCULAR HEMOGLOBIN 31.6 pg (27.0-34.8); MEAN CORPUSCULAR HGB CONC 33.1 g/dL (32.4-35.8); MEAN PLATELET VOLUME 6.7 fL (7.4-10.4); MONOCYTES % (AUTO) 7 % (2-9); NEUTROPHILS % (AUTO) 79 % (42-75); PLATELET COUNT 263 x10^3/uL (130-400); RED BLOOD COUNT 3.07 x10^6/uL (3.82-5.3); RED CELL DISTRIBUTION WIDTH 14.8 % (9.6-15.2)
[2019-12-30 16:48] LABS: MD NO
[2019-12-30 16:55] LABS: ALBUMIN 2.7 g/dL (3.4-5.0); ANION GAP 6 mmol/L (5-15); CALCIUM 8.4 mg/dL (8.5-10.1); CHLORIDE 103 mmol/L (98-107)
--- NOTE | 2019-12-30 17:00 | NUR ---
MEAL PROVIDED FOR PATIENT
[2019-12-30] MEDS ORDERED: IBUPROFEN 600 MG TABLET ONE (17:06)
[2019-12-30 17:09] LABS: ALANINE AMINOTRANSFERASE 15 U/L (12-78); ALKALINE PHOSPHATASE 97 U/L (45-117); BILIRUBIN,TOTAL 0.8 mg/dL (0.2-1.0); CREATININE 0.81 mg/dL (0.55-1.02)
[2019-12-30] MEDS ORDERED: IBUPROFEN 600 MG TABLET PO ONE (17:30)
[2019-12-30] MEDS ORDERED: CEFTRIAXONE PMX 1GM/50ML 50 ML ONE (17:50)
[2019-12-30 17:57] LABS: MICROSCOPIC INDICATED
[2019-12-30] MEDS ORDERED: CEFTRIAXONE PMX 1GM/50ML 50 ML IVPB ONE (18:00)
--- NOTE | 2019-12-30 18:49 | NUR ---
REPORT TO AMILCAR GRAY, PLAN OF CARE DISCUSSED.
--- NOTE | 2019-12-30 19:07 | NUR ---
REPORT FROM TIRSO, FIRST CONTACT FOR DC. IV DC CATH INTACT, VSS. GIVEN DC INSTRUCT PT VERBALIZES UNDERSTANDING OF INSTRUCT. TO FU WITH PCP RETURN TO ER IF WORSE OR CONERNS.
[2019-12-30 19:16] VITALS: BP 110/78
== END 2019-12-30 19:31 | disposition home or self-care (01) ==
LOC: ED 16:48
DX: B34.9 Viral infection, unspecified (principal); R50.9 Fever, unspecified; R00.0 Tachycardia, unspecified; I10 Essential (primary) hypertension; F17.200 Nicotine dependence, unspecified, uncomplicated
CPT/HCPCS: 36415; 71045; 80053; 81001; 83605; 84145; 85025; 93005; 96361; 96365; 99285; J0696; J7030; 99284

== ENCOUNTER 2020-02-02 21:08 | Emergency (ER) | payer MEDICAID, MEDICARE ==
--- NOTE | 2020-02-02 21:27 | NUR ---
CALLED PT FOR TRIAGE. PT ASKED FOR A WHEELCHAIR. WHEELCHAIR BROUGHT TO PT AND PT WAS ASKED TO SIT IN IT. PT REFUSED TO SIT IN WHEELCHAIR AND BEGAN YELLING. WHEN SECURITY APPROACHED, PT SAT IN WHEELCHAIR. PT WAS BROUGHT TO TRIAGE AND TOLD THIS TECH TO "SHUT UP" WHEN SHE WAS ASKED TO STAND ON A SCALE. PT THEN IGNORED THIS TECH AND STATED "GET THE FUCK OUT OF HERE." THIS TECH LEFT THE ROOM.
--- NOTE | 2020-02-02 21:31 | NUR ---
pt called into triage room and was combative and beligerent with flight of words and ideas. refused to allow vital signs to be taken, and refused to cooperate with staff. Became loud and combative with security who was called to area for her outbursts. pt continues to refuse to be screened and vitalized. security escorting pt out to lobby as she refuses to be screened in triage at this time.
== END 2020-02-02 21:41 | disposition left against medical advice (07) ==
LOC: ED 21:30
DX: R45.851 Suicidal ideations (principal); Z53.21 Procedure and treatment not carried out due to patient leaving prior to being seen by health care provider

== ENCOUNTER 2020-03-04 19:04 | Emergency (ER) | payer MEDICARE ==
[~2020-03-04] VITALS: Ht 175.3 cm; Wt 72.5 kg
[2020-03-04 19:09] VITALS: BP 147/80
--- NOTE | 2020-03-04 19:18 | NUR ---
PT LEFT RIGHT AFTER TRIAGE
== END 2020-03-04 19:19 | disposition left against medical advice (07) ==
LOC: ED 19:13
DX: R05 Cough (principal); Z53.21 Procedure and treatment not carried out due to patient leaving prior to being seen by health care provider

== ENCOUNTER 2020-03-18 18:41 | Emergency (ER) | payer MEDICARE ==
[~2020-03-18] VITALS: Ht 177.8 cm; Wt 72.7 kg
--- NOTE | 2020-03-18 19:00 | NUR ---
PT REFUSES VITAL SIGN'S. PROVIDER UPDATED.
== END 2020-03-18 21:51 | disposition home or self-care (01) ==
LOC: ED 20:01
DX: F20.9 Schizophrenia, unspecified (principal); G89.29 Other chronic pain; R10.2 Pelvic and perineal pain; R10.30 Lower abdominal pain, unspecified
CPT/HCPCS: 99281; 99283

== ENCOUNTER 2020-07-12 04:34 | Observation (INO) | payer MEDICARE ==
[~2020-07-12] VITALS: Ht 177.8 cm; Wt 66.1 kg
--- NOTE | 2020-07-12 04:58 | NUR ---
PT SLEEPING IN BED, SIDERAILS UP X2 AND CALL LIGHT WITHIN REACH.
--- NOTE | 2020-07-12 05:24 | NUR ---
MD TO BEDSIDE TO EVAL PT. ORDERS RECEIVED FOR LABS AND A UA
--- NOTE | 2020-07-12 06:09 | NUR ---
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
[2020-07-12 06:19] LABS: BASOPHILS % (AUTO) 1 % (0-1); EOSINOPHILS % (AUTO) 1 % (1-7); LYMPHOCYTES % (AUTO) 37 % (22-44); MEAN CORPUSCULAR HEMOGLOBIN 32.1 pg (27.0-34.8); MEAN CORPUSCULAR HGB CONC 33.4 g/dL (32.4-35.8); MONOCYTES % (AUTO) 13 % (2-9); NEUTROPHILS % (AUTO) 48 % (42-75); PLATELET COUNT 190 x10^3/uL (130-400); RED BLOOD COUNT 3.34 x10^6/uL (3.82-5.3); RED CELL DISTRIBUTION WIDTH 12.9 % (9.6-15.2)
[2020-07-12 06:22] LABS: MD NO
[2020-07-12 06:28] LABS: ALBUMIN 3.6 g/dL (3.4-5.0); ANION GAP 6 mmol/L (5-15); CALCIUM 8.7 mg/dL (8.5-10.1); CHLORIDE 107 mmol/L (98-107); CREATININE 1.02 mg/dL (0.55-1.02); SALICYLATE LEVEL < 1.7 mg/dL (2.8-20.0)
--- NOTE | 2020-07-12 06:31 | NUR ---
NO URINE PROVIDED BY PT YET. PT ADVISED WE NEED A UA.
--- NOTE | 2020-07-12 06:58 | NUR ---
PATIENT IN BED, GOT HER UP AND REMOVED CLOTHING PLACED IN BELONGINGS BAG AND LOCKED UP. GOT URINE AND SENT TO LAB. PATIENT COOPERATIVE AT THIS TIME.
[2020-07-12 07:55] LABS: AMPHETAMINE SCREEN, URINE Positive (Negative); BARBITURATE SCREEN, URINE Negative (Negative); BENZODIAZEPINE SCREEN, URINE Negative (Negative); CANNABINOID SCREEN, URINE Negative (Negative); COCAINE SCREEN, URINE Negative (Negative); METHADONE SCREEN, URINE Negative (Negative); OPIATE SCREEN, URINE Negative (Negative)
--- NOTE | 2020-07-12 08:51 | NUR ---
BREAKFAST GIVEN, PATIENT ATE ALL
--- NOTE | 2020-07-12 10:08 | NUR ---
PATIENT RESTING QUIETLY
--- NOTE | 2020-07-12 10:53 | NUR ---
UP TO BATHROOM AND NOW BACK RESTING
--- NOTE | 2020-07-12 12:22 | NUR ---
GOT PATIENT LUNCH TRAY. PATIENT RESTING QUIETLY. NO COMPLICATIONS.
--- NOTE | 2020-07-12 13:16 | NUR ---
DISCHARGE REVIEWED. PATIENT BEGAN TO GET AGGRESSIVE, SCREAMING AND YELLING NOT WANTING TO LEAVE. GOT HER A CAB VOUCHER TO [place], PATIENT IS ANGRY. CALLED SECURITY AND THEY ARE HELPING GET HER SAFELY OUT TO CAB. ALL BELONGINGS RETURNED
[2020-07-12 13:17] VITALS: BP 123/78
== END 2020-07-12 13:45 | disposition home or self-care (01) ==
LOC: ED 05:04 → EDIP 06:45
PROVIDERS: ADMIT Emergency Medicine; ATTEND Emergency Medicine
DX: F32.9 Major depressive disorder, single episode, unspecified (principal); F20.9 Schizophrenia, unspecified; R45.851 Suicidal ideations; I10 Essential (primary) hypertension; F11.90 Opioid use, unspecified, uncomplicated; F15.10 Other stimulant abuse, uncomplicated; F17.200 Nicotine dependence, unspecified, uncomplicated; Z72.9 Problem related to lifestyle, unspecified; Z63.8 Other specified problems related to primary support group; Z79.899 Other long term (current) drug therapy
CPT/HCPCS: 36415; 80048; 80299; 80307; 80320; 80329; 82040; 85025; 99284; G0378; G0480